=== PATIENT | male | born 1950 | race Two or more races ===

== ENCOUNTER 2023-06-06 14:59 | Emergency (ER) | payer OTHER ==
[~2023-06-06] VITALS: Ht 175.3 cm; Wt 86.5 kg
[2023-06-06 16:18] LABS: Basophils # (auto) 0 10 ^3/uL (0-0.2); Basophils % (auto) 0.4 % (0.0-2.0); Eosinophils # (auto) 0.1 10 ^3/uL (0-0.8); Eosinophils % (auto) 1.1 % (0.0-7.0); Hematocrit 41.9 % (41.0-53.0); Hemoglobin 14.3 g/dL (13.5-17.5); Lymphocytes # (auto) 1.5 10 ^3/uL (0.4-5.4); Lymphocytes % (auto) 26.8 % (10.0-50.0); Mean Corpuscular Hemoglobin 31.6 pg (28.0-32.0); Mean Corpuscular Hgb Conc. 34.2 g/dL (32.0-36.0); Mean Corpuscular Volume 92.4 fL (80.0-100.0); Monocytes # (auto) 0.4 10 ^3/uL (0-1.3); Monocytes % (auto) 7.7 % (0.0-12.0); Neutrophils # (auto) 3.6 10 ^3/uL (1.6-8.6); Nucleated Red Blood Cells % 0.1 %; Red Blood Cells 4.54 10^6/uL (4.5-5.90); Red Cell Distribution Width 13.9 % (11.8-14.3); White Blood Cell 5.6 10^3/uL (4.4-10.8)
[2023-06-06 16:33] LABS: Alanine Aminotransferase 16 U/L (7-40); Albumin 4.3 g/dL (3.2-4.8); Alkaline Phosphatase 78 U/L (46-116); Anion Gap 5 (5-15); Aspartate Aminotransferase 25 U/L (13-40); BUN/Creatinine Ratio 7.4 (10.0-20.0); Blood Urea Nitrogen 7 mg/dL (9-23); Calcium 10.2 mg/dL (8.7-10.4); Carbon Dioxide 27 mmol/L (20-30); Chloride 106 mmol/L (98-107); Glucose 132 mg/dL (74-106); Potassium 3.9 mmol/L (3.5-5.1); Sodium 138 mmol/L (136-145)
[2023-06-06 16:34] LABS: Bilirubin, Total 0.4 mg/dL (0.2-1.0); Total Protein 6.5 g/dL (5.7-8.2)
[2023-06-06 18:08] VITALS: PULSE 106; RESP 18; TEMP 97.5; O2SAT 97
[2023-06-06 19:17] VITALS: BP 129/86
[2023-06-06 20:41] LABS: Urine Bacteria NONE SEEN /hpf (None Seen); Urine Blood Negative /uL (Negative); Urine Clarity Clear (Clear); Urine Color Yellow (Yellow); Urine Mucus FEW (None Seen); Urine Protein, UAD TRACE (Negative); Urine Specific Gravity 1.024 (1.001-1.035); Urine Urobilinogen Normal (Negative); Urine WBC <1 /hpf (0 - 3); Urine pH 5.5 (5.0-8.0)
== END 2023-06-06 21:21 | disposition home or self-care (01) ==
LOC: ER 14:59
DX: I95.9 Hypotension, unspecified (principal); I10 Essential (primary) hypertension; Z98.890 Other specified postprocedural states
CPT/HCPCS: 36415; 70450; 71045; 80053; 81001; 83605; 83735; 83880; 84484; 85025

== ENCOUNTER 2023-09-30 17:57 | Inpatient (IN) | payer OTHER ==
[~2023-09-30] VITALS: Ht 180.3 cm; Wt 131.8 kg
[2023-09-30 18:31] LABS: Basophils # (auto) 0 10 ^3/uL (0-0.2); Basophils % (auto) 0.6 % (0.0-2.0); Eosinophils # (auto) 0.2 10 ^3/uL (0-0.8); Eosinophils % (auto) 4.1 % (0.0-7.0); Hematocrit 39.4 % (41.0-53.0); Hemoglobin 13.5 g/dL (13.5-17.5); Lymphocytes # (auto) 1.2 10 ^3/uL (0.4-5.4); Lymphocytes % (auto) 25.3 % (10.0-50.0); Mean Corpuscular Hemoglobin 31.9 pg (28.0-32.0); Mean Corpuscular Hgb Conc. 34.4 g/dL (32.0-36.0); Mean Corpuscular Volume 92.7 fL (80.0-100.0); Monocytes # (auto) 0.6 10 ^3/uL (0-1.3); Monocytes % (auto) 11.6 % (0.0-12.0); Neutrophils # (auto) 2.8 10 ^3/uL (1.6-8.6); Neutrophils % (auto) 58.4 % (37.0-80.0); Nucleated Red Blood Cells % 0.1 %; Red Blood Cells 4.25 10^6/uL (4.5-5.90); Red Cell Distribution Width 14.2 % (11.8-14.3); White Blood Cell 4.7 10^3/uL (4.4-10.8)
[2023-09-30 18:47] LABS: Alanine Aminotransferase 16 U/L (7-40); Albumin 4.2 g/dL (3.2-4.8); Alkaline Phosphatase 75 U/L (46-116); Anion Gap 7 (5-15); Aspartate Aminotransferase 20 U/L (13-40); BUN/Creatinine Ratio 15.6 (10.0-20.0); Blood Urea Nitrogen 17 mg/dL (9-23); Calcium 9.8 mg/dL (8.5-10.1); Carbon Dioxide 23 mmol/L (20-30); Chloride 109 mmol/L (98-107); Glucose 144 mg/dL (74-106); Potassium 3.9 mmol/L (3.5-5.1); Sodium 139 mmol/L (136-145)
[2023-09-30 18:48] LABS: Bilirubin, Total 0.3 mg/dL (0.2-1.0); Total Protein 6.4 g/dL (5.7-8.2)
[2023-09-30 19:14] LABS: INR 0.95 (0.9-1.15); Partial Thromboplastin Time 25.1 SEC (24.5-34.5); Prothrombin Time 10.1 sec (9.3-11.8)
[2023-09-30] MEDS: ASPirin 325 MG TAB PO ONE (19:25)
[2023-09-30] MEDS ORDERED: MORPHINE SULFATE INJ 2 MG/ml SYRG IV PRN ×2 (23:00)
[2023-09-30] MEDS ORDERED: ONDANSETRON HCL 4 MG/2 ML VIAL IV PRN (23:00)
[2023-09-30] MEDS ORDERED: NITROGLYCERIN 0.4 MG SL TAB SL PRN (23:00)
[2023-10-01 09:44] VITALS: PULSE 71; RESP 71; O2SAT 96
[2023-10-01 09:57] LABS: Urine Bacteria None Seen /hpf (None Seen)
[2023-10-01 10:21] LABS: Amphetamine Screen, Urine Neg (NEGATIVE); Barbiturate Scree,Urine Neg (NEGATIVE); Benzodiazephine Screen, Urine Neg (NEGATIVE); Cannabinoid Screen, Urine Neg (NEGATIVE); Cocaine Screen, Urine Neg (NEGATIVE); Opiate Scree,Urine Neg (NEGATIVE); Phencyclidine Screen, Urine Neg (NEGATIVE)
[2023-10-01 10:22] LABS: Urine Blood Negative /uL (Negative); Urine Clarity Clear (Clear); Urine Color Yellow (Yellow); Urine Mucus FEW (None Seen); Urine Protein, UAD TRACE (Negative); Urine Specific Gravity 1.031 (1.001-1.035); Urine Urobilinogen Normal (Negative); Urine WBC 3 /hpf (0 - 3); Urine pH 5.5 (5.0-9.0)
[2023-10-01] MEDS: ASPirin 81 mg TAB PO SCH (10:33)
[2023-10-01] MEDS ORDERED: MET25T PO (13:32)
[2023-10-01] MEDS ORDERED: TAMS0.4C36 PO (13:32)
[2023-10-01] MEDS ORDERED: AMLO1TAB22 PO (13:32)
[2023-10-01] MEDS ORDERED: FIN5T PO (13:32)
[2023-10-01] MEDS ORDERED: GAB100C PO (13:32)
[2023-10-01] MEDS: GABAPENTIN 100 MG CAP PO SCH (14:54)
[2023-10-01 20:00] VITALS: PULSE 65
[2023-10-01 21:00] VITALS: BP 114/73; PULSE 63; RESP 18; TEMP 98.6; O2SAT 98
[2023-10-02 01:00] VITALS: BP 137/88; PULSE 89; RESP 18; TEMP 98.6; O2SAT 97
[2023-10-02 05:00] VITALS: BP 123/81; PULSE 72; RESP 18; TEMP 98.4; O2SAT 96
[2023-10-02 08:00] VITALS: BP 131/86; PULSE 62; PULSE 63; RESP 18; TEMP 98.2; O2SAT 93
[2023-10-02] MEDS: METOPROLOL TARTRATE 25 MG TAB PO SCH (09:37)
[2023-10-02] MEDS: amLODIPine BESYLATE 5 MG TAB PO SCH (09:38)
[2023-10-02] MEDS: FINASTERIDE 5 MG TAB PO SCH (09:39)
[2023-10-02] MEDS: FAMOTIDINE 20 MG TAB PO SCH (09:39)
[2023-10-02] MEDS: TAMSULOSIN HYDROCHLORIDE 0.4 MG CAP PO SCH (09:39)
[2023-10-02 12:00] VITALS: BP 141/77; PULSE 62; RESP 16; TEMP 97.8; O2SAT 97
[2023-10-02] MEDS ORDERED: OMEP20TA PO (13:15)
[2023-10-02] MEDS ORDERED: GABA250S7 PO (13:25)
[2023-10-02] MEDS ORDERED: TAMS1CAP25 PO (13:25)
[2023-10-02 16:00] VITALS: BP 143/77; PULSE 57; RESP 16; TEMP 98; O2SAT 96
[2023-10-02] MEDS ORDERED: ASPI-325 PO (17:14)
== END 2023-10-02 19:10 | disposition home or self-care (01) | DRG 311 ==
LOC: ER 17:57 → TELE 23:05 → TELE-CENTR 10-01 16:42
PROVIDERS: ADMIT Internal Medicine; ATTEND Internal Medicine
DX: I20.0 Unstable angina (principal); E11.40 Type 2 diabetes mellitus with diabetic neuropathy, unspecified; I10 Essential (primary) hypertension; N40.0 Benign prostatic hyperplasia without lower urinary tract symptoms; I45.10 Unspecified right bundle-branch block; Z90.49 Acquired absence of other specified parts of digestive tract; Z79.899 Other long term (current) drug therapy
CPT/HCPCS: 36415; 70450; 70551; 71045; 80053; 80307; 81001; 84484; 85025; 85610; 85730; 93005; 93306; G0378

== ENCOUNTER 2023-10-16 07:55 | Inpatient (IN) | payer OTHER ==
[~2023-10-16] VITALS: Ht 175.3 cm; Wt 85.4 kg
[~2023-10-16 07:55] MED LIST: AMLO1TAB22 PO; ASPI-325 PO; FIN5T PO; GAB100C PO; GABA250S7 PO; MET25T PO; OMEP20TA PO; TAMS0.4C36 PO; TAMS1CAP25 PO
[2023-10-16 08:33] LABS: Basophils # (auto) 0 10 ^3/uL (0-0.2); Basophils % (auto) 0.6 % (0.0-2.0); Eosinophils # (auto) 0 10 ^3/uL (0-0.8); Eosinophils % (auto) 1.4 % (0.0-7.0); Hematocrit 41.3 % (41.0-53.0); Hemoglobin 14.1 g/dL (13.5-17.5); Lymphocytes # (auto) 0.9 10 ^3/uL (0.4-5.4); Lymphocytes % (auto) 28.3 % (10.0-50.0); Mean Corpuscular Hgb Conc. 34.1 g/dL (32.0-36.0); Mean Corpuscular Volume 93.6 fL (80.0-100.0); Monocytes # (auto) 0.3 10 ^3/uL (0-1.3); Monocytes % (auto) 8.7 % (0.0-12.0); Red Blood Cells 4.42 10^6/uL (4.5-5.90); Red Cell Distribution Width 14.4 % (11.8-14.3); White Blood Cell 3.3 10^3/uL (4.4-10.8)
[2023-10-16 08:42] LABS: Chloride 109 mmol/L (98-107); Potassium 4.3 mmol/L (3.5-5.1); Sodium 140 mmol/L (136-145)
[2023-10-16 08:43] LABS: Anion Gap 9 (5-15); Calcium 10.3 mg/dL (8.7-10.4); Carbon Dioxide 22 mmol/L (20-30)
[2023-10-16 08:48] LABS: BUN/Creatinine Ratio 12.5 (10.0-20.0); Blood Urea Nitrogen 13 mg/dL (9-23); Glucose 145 mg/dL (74-106)
[2023-10-16] MEDS ORDERED: ACETAMINOPHEN 325 MG TAB PO PRN (11:00)
[2023-10-16] MEDS ORDERED: NITROGLYCERIN 0.4 MG SL TAB SL PRN (11:00)
[2023-10-16] MEDS ORDERED: MORPHINE SULFATE INJ 2 MG/ml SYRG IV PRN ×2 (11:00)
[2023-10-16] MEDS ORDERED: DOCUSATE SOD 100 MG CAP PO PRN (11:00)
[2023-10-16] MEDS ORDERED: TEMAZEPAM 15 MG CAP PO PRN (11:00)
[2023-10-16 11:44] LABS: Triglycerides 125 mg/dL (< 150)
[2023-10-16 11:45] LABS: LDL Cholesterol 87 mg/dL (< 100)
[2023-10-16 11:46] LABS: Cholesterol 145 mg/dL (< 200); HDL Cholesterol 50 mg/dL (40-59)
[2023-10-16] MEDS ORDERED: GABAPENTIN 100 MG PO SCH (14:00)
[2023-10-16] MEDS: GABAPENTIN 100 MG CAP PO SCH (16:26)
[2023-10-16] MEDS: HYDROcodone-ACET 5/325MG TAB PO PRN (16:26)
[2023-10-16] MEDS: ACCU-CHEK COMFORT CURVE STRIP VI ONE (20:17)
[2023-10-16] MEDS: DEXTROSE (50%) 50ML SYRG IV ONE (20:18)
[2023-10-16] MEDS: InsuLIN REG 1unit/0.01ml Soln (100units/ml) SC ONE (20:24)
[2023-10-16] MEDS: ONDANSETRON HCL 4 MG/2 ML VIAL IV PRN (21:42)
[2023-10-17] VITALS (7 sets, daily range): BP systolic 110–139; BP diastolic 63–82; PULSE 51–74; RESP 14–18; TEMP 97.8–98.7; O2SAT 95–97
[2023-10-17 06:14] LABS: Basophils # (auto) 0 10 ^3/uL (0-0.2); Basophils % (auto) 0.5 % (0.0-2.0); Eosinophils # (auto) 0.1 10 ^3/uL (0-0.8); Eosinophils % (auto) 3.1 % (0.0-7.0); Hemoglobin 12.6 g/dL (13.5-17.5); Lymphocytes % (auto) 25.8 % (10.0-50.0); Mean Corpuscular Hemoglobin 32.7 pg (28.0-32.0); Mean Corpuscular Hgb Conc. 34.9 g/dL (32.0-36.0); Mean Corpuscular Volume 93.7 fL (80.0-100.0); Monocytes # (auto) 0.4 10 ^3/uL (0-1.3); Monocytes % (auto) 11.2 % (0.0-12.0); Neutrophils # (auto) 2.3 10 ^3/uL (1.6-8.6); Neutrophils % (auto) 59.4 % (37.0-80.0); Red Blood Cells 3.84 10^6/uL (4.5-5.90); Red Cell Distribution Width 14.2 % (11.8-14.3); White Blood Cell 3.9 10^3/uL (4.4-10.8)
[2023-10-17 06:38] LABS: Alanine Aminotransferase 15 U/L (7-40); Albumin 3.9 g/dL (3.2-4.8); Alkaline Phosphatase 52 U/L (46-116); Anion Gap 6 (5-15); Aspartate Aminotransferase 15 U/L (13-40); BUN/Creatinine Ratio 16.8 (10.0-20.0); Bilirubin, Total 0.5 mg/dL (0.2-1.0); Blood Urea Nitrogen 16 mg/dL (9-23); Calcium 9.7 mg/dL (8.7-10.4); Carbon Dioxide 26 mmol/L (20-30); Chloride 107 mmol/L (98-107); Glucose 84 mg/dL (74-106); Potassium 3.9 mmol/L (3.5-5.1); Sodium 139 mmol/L (136-145); Total Protein 5.8 g/dL (5.7-8.2)
[2023-10-17] MEDS: TAMSULOSIN HYDROCHLORIDE 0.4 MG CAP PO SCH (11:10)
[2023-10-17] MEDS: PANTOPRAZOLE 40 MG TAB PO SCH (11:11)
[2023-10-17] MEDS: METOPROLOL TARTRATE 25 MG TAB PO SCH (11:11)
[2023-10-17] MEDS: FINASTERIDE 5 MG TAB PO SCH (11:12)
[2023-10-17] MEDS: amLODIPine BESYLATE 5 MG TAB PO SCH (11:12)
[2023-10-17] MEDS: ENOXAPARIN SOD 40 MG/0.4 ML SYRINGE SC SCH (11:13)
[2023-10-17] MEDS ORDERED: OMNIPAQUE 12mg/ml 500ml ORAL SOLUTION PO ONE (14:15)
[2023-10-17 14:28] LABS: Urine Bacteria None Seen /hpf (None Seen)
[2023-10-17 14:40] LABS: Urine Blood Negative /uL (Negative); Urine Clarity Clear (Clear); Urine Color Light-Yellow (Yellow); Urine Protein, UAD Negative (Negative); Urine Specific Gravity 1.011 (1.001-1.035); Urine Urobilinogen Normal (Negative); Urine WBC <1 /hpf (0 - 3); Urine pH 7.5 (5.0-9.0)
[2023-10-17] MEDS ORDERED: OMEP-448 PO (17:09)
[2023-10-17] MEDS ORDERED: IBUP-1456 PO (17:09)
[2023-10-17] MEDS ORDERED: TRIA0.02 TOP (17:09)
[2023-10-18] VITALS (8 sets, daily range): BP systolic 96–139; BP diastolic 58–73; PULSE 53–67; RESP 14–18; TEMP 97.7–98.8; O2SAT 94–98
[2023-10-19] VITALS (9 sets, daily range): BP systolic 103–126; BP diastolic 64–73; PULSE 47–65; RESP 17–20; TEMP 97.7–98.6; O2SAT 93–97
[2023-10-19] MEDS ORDERED: SODIUM CHLORIDE LOCK 10 ML ONE (14:44)
[2023-10-19] MEDS: LIDOCAINE VISCOUS 2% 15ML UD ONE (15:04)
[2023-10-19] MEDS: diphenhdrAMINE HCL 50 MG/1 ML VL ONE (15:11)
[2023-10-19] MEDS: MIDAZOLAM HCL 5 MG/ML-1ML VIAL ONE (15:11)
[2023-10-19] MEDS: fentaNYL CITRATE 100 MCG/2 ML VL ONE (15:11)
[2023-10-20 01:00] VITALS: BP 105/67; PULSE 80; RESP 20; TEMP 97.7; O2SAT 95
[2023-10-20 05:00] VITALS: BP 109/72; PULSE 70; RESP 18; TEMP 97.7; O2SAT 96
[2023-10-20 08:00] VITALS: BP 119/76; PULSE 60; PULSE 80; PULSE 82; RESP 18; TEMP 97.8; O2SAT 94
[2023-10-20 12:00] VITALS: BP 111/66; PULSE 67; RESP 18; TEMP 98.4; O2SAT 99
[2023-10-20] MEDS ORDERED: PANT40T PO (14:16)
[2023-10-20 15:34] VITALS: BP 111/66; PULSE 67; RESP 18; TEMP 98.4; O2SAT 99
== END 2023-10-20 16:20 | disposition home or self-care (01) | DRG 382 ==
LOC: ER 07:55 → TELE 11:01 → TELE-EAST 10-17 09:15
PROVIDERS: ADMIT Nurse Practitioner; ATTEND Nurse Practitioner
PROC: 0DB68ZX Excision of Stomach, Via Natural or Artificial Opening Endoscopic, Diagnostic (ICD-10-PCS; 2023-10-19)
PROC: 0DB98ZX Excision of Duodenum, Via Natural or Artificial Opening Endoscopic, Diagnostic (ICD-10-PCS; principal; 2023-10-19 15:04)
DX: K22.10 Ulcer of esophagus without bleeding (principal); I25.10 Atherosclerotic heart disease of native coronary artery without angina pectoris; E11.65 Type 2 diabetes mellitus with hyperglycemia; I44.4 Left anterior fascicular block; J98.4 Other disorders of lung; K44.9 Diaphragmatic hernia without obstruction or gangrene; K40.20 Bilateral inguinal hernia, without obstruction or gangrene, not specified as recurrent; K57.30 Diverticulosis of large intestine without perforation or abscess without bleeding; K83.8 Other specified diseases of biliary tract; I10 Essential (primary) hypertension; F41.9 Anxiety disorder, unspecified; Z90.49 Acquired absence of other specified parts of digestive tract; Z79.82 Long term (current) use of aspirin; Z79.899 Other long term (current) drug therapy
CPT/HCPCS: 36415; 43239; 71045; 74176; 80048; 80053; 80061; 81001; 83880; 84484; 85025; 93005; G0378; J1815; J2250; J2405

== ENCOUNTER 2023-10-26 08:56 | Emergency (ER) | payer OTHER ==
[~2023-10-26] VITALS: Ht 175.3 cm; Wt 83.0 kg
[~2023-10-26 08:56] MED LIST changes: -GABA250S7 PO; +IBUP-1456 PO; -OMEP20TA PO; +PANT40T PO; -TAMS1CAP25 PO; +TRIA0.02 TOP
[2023-10-26 09:42] LABS: Basophils # (auto) 0 10 ^3/uL (0-0.2); Basophils % (auto) 0.7 % (0.0-2.0); Eosinophils # (auto) 0.1 10 ^3/uL (0-0.8); Eosinophils % (auto) 2.9 % (0.0-7.0); Hematocrit 40.8 % (41.0-53.0); Hemoglobin 14.2 g/dL (13.5-17.5); Lymphocytes # (auto) 1.2 10 ^3/uL (0.4-5.4); Lymphocytes % (auto) 31.6 % (10.0-50.0); Mean Corpuscular Hemoglobin 32.6 pg (28.0-32.0); Mean Corpuscular Hgb Conc. 34.7 g/dL (32.0-36.0); Mean Corpuscular Volume 93.9 fL (80.0-100.0); Monocytes # (auto) 0.4 10 ^3/uL (0-1.3); Monocytes % (auto) 9.9 % (0.0-12.0); Neutrophils # (auto) 2.1 10 ^3/uL (1.6-8.6); Neutrophils % (auto) 54.9 % (37.0-80.0); Red Blood Cells 4.34 10^6/uL (4.5-5.90); Red Cell Distribution Width 14.2 % (11.8-14.3); White Blood Cell 3.9 10^3/uL (4.4-10.8)
[2023-10-26 10:06] LABS: Alanine Aminotransferase 18 U/L (7-40); Albumin 4.1 g/dL (3.2-4.8); Alkaline Phosphatase 64 U/L (46-116); Anion Gap 8 (5-15); Aspartate Aminotransferase 18 U/L (13-40); BUN/Creatinine Ratio 7.3 (10.0-20.0); Bilirubin, Total 0.6 mg/dL (0.2-1.0); Blood Urea Nitrogen 8 mg/dL (9-23); Calcium 10.2 mg/dL (8.7-10.4); Carbon Dioxide 23 mmol/L (20-30); Chloride 108 mmol/L (98-107); Glucose 120 mg/dL (74-106); Potassium 3.9 mmol/L (3.5-5.1); Sodium 139 mmol/L (136-145); Total Protein 6.4 g/dL (5.7-8.2)
[2023-10-26 11:10] VITALS: PULSE 63; RESP 16; O2SAT 97
[2023-10-26 11:22] VITALS: TEMP 98.1
[2023-10-26] MEDS: MORPHINE SULFATE INJ 2 MG/ml SYRG IM ONE (11:40)
[2023-10-26] MEDS: ONDANSETRON HCL 4 MG/2 ML VIAL IV ONE (11:48)
[2023-10-26] MEDS: IOHEXOL 300 MG/ML 100ML BOTTLE IJ ONE (13:03)
[2023-10-26 13:06] VITALS: BP 125/77; PULSE 58; RESP 16; O2SAT 98
[2023-10-26 13:32] LABS: Urine Bacteria None Seen /hpf (None Seen)
[2023-10-26 13:47] LABS: Urine Blood Negative /uL (Negative); Urine Clarity Clear (Clear); Urine Color Yellow (Yellow); Urine Mucus FEW (None Seen); Urine Protein, UAD TRACE (Negative); Urine Urobilinogen Normal (Negative); Urine WBC <1 /hpf (0 - 3); Urine pH 6.5 (5.0-9.0)
[2023-10-26 13:53] LABS: Urine Specific Gravity > 1.050 (1.001-1.035)
[2023-10-26] MEDS ORDERED: BISM262C44 PO (14:49)
[2023-10-26] MEDS ORDERED: [UNRECOGNIZED DRUG - CODE] PO (14:49)
== END 2023-10-26 15:05 | disposition home or self-care (01) ==
LOC: ER 09:01
DX: R07.89 Other chest pain (principal); K52.9 Noninfective gastroenteritis and colitis, unspecified; E11.65 Type 2 diabetes mellitus with hyperglycemia; I10 Essential (primary) hypertension; Z90.49 Acquired absence of other specified parts of digestive tract; Z79.899 Other long term (current) drug therapy; Z79.82 Long term (current) use of aspirin
CPT/HCPCS: 36415; 71046; 74177; 80053; 81001; 84484; 85025; 93005; 96372; 96374; 99285; J2270; J2405; Q9967

== ENCOUNTER 2024-03-07 21:11 | Emergency (ER) | payer OTHER ==
[~2024-03-07] VITALS: Ht 175.3 cm; Wt 81.3 kg
[~2024-03-07 21:11] MED LIST changes: +BISM262C44 PO; -TAMS0.4C36 PO; +TAMS0.4C39 PO; +[UNRECOGNIZED DRUG - CODE] PO
[2024-03-07 22:07] LABS: COVID19 ANTIGEN SOFIA FIA NEGATIVE (NEGATIVE); Rapid Influenza A Negative (Negative); Rapid Influenza B Negative (Negative)
[2024-03-07 22:08] LABS: Basophils # (auto) 0 10 ^3/uL (0-0.2); Basophils % (auto) 0.6 % (0.0-2.0); Eosinophils # (auto) 0.1 10 ^3/uL (0-0.8); Eosinophils % (auto) 2.3 % (0.0-7.0); Hematocrit 40.8 % (41.0-53.0); Hemoglobin 13.8 g/dL (13.5-17.5); Lymphocytes # (auto) 1.2 10 ^3/uL (0.4-5.4); Lymphocytes % (auto) 26.1 % (10.0-50.0); Mean Corpuscular Hgb Conc. 33.9 g/dL (32.0-36.0); Mean Corpuscular Volume 94.3 fL (80.0-100.0); Monocytes # (auto) 0.5 10 ^3/uL (0-1.3); Monocytes % (auto) 10.4 % (0.0-12.0); Neutrophils # (auto) 2.9 10 ^3/uL (1.6-8.6); Neutrophils % (auto) 60.6 % (37.0-80.0); Nucleated Red Blood Cells % 0.1 %; Platelet Count (auto) 185 10^3/uL (140-450); Red Blood Cells 4.33 10^6/uL (4.5-5.90); White Blood Cell 4.7 10^3/uL (4.4-10.8)
[2024-03-07 22:14] LABS: Alanine Aminotransferase 15 U/L (7-40); Albumin 4.2 g/dL (3.2-4.8); Alkaline Phosphatase 90 U/L (46-116); Anion Gap 6 (5-15); Aspartate Aminotransferase 17 U/L (13-40); Bilirubin, Total 0.3 mg/dL (0.2-1.0); Blood Urea Nitrogen 16 mg/dL (9-23); Calcium 10.4 mg/dL (8.7-10.4); Carbon Dioxide 29 mmol/L (20-31); Chloride 104 mmol/L (98-107); Potassium 4.2 mmol/L (3.5-5.1); Sodium 139 mmol/L (136-145); Total Protein 6.6 g/dL (5.7-8.2)
[2024-03-07 22:17] LABS: Glucose 146 mg/dL (74-106)
--- NOTE | 2024-03-08 00:36 | ED.PDOC ---
History of Present Illness HPI Comments This patient is a 73-year-old male who arrives to the ED today with complaints of dizziness, headache, intermittent nausea and hypertensive concerns for the past day. Patient states he has a history of hypertension but does not utilize medication. Patient denies any fever. Patient's BP was 153/94 at arrival. Chief Complaint: Headache Time Seen by MD: 21:19 Primary Care Provider: LATRICIA Reviewed Notes: Nurses Notes Allergies: Coded Allergies: NO KNOWN ALLERGIES (Unverified , 06/06/23) Home Meds Active Scripts Bismuth Subsalicylate (PEPTO-BISMOL TO-GO) 262 Mg Chw, 262 MG PO BID for 10 Days, #20 TAB.CHEW Prov:ZAHRA GONZALES MD 10/26/23 Probiotic Product (Probiotic 10 Ultra Streng) 1 Cap Cap, 1 CAP PO B.i.d. for 15 Days, #30 CAP Prov:ZAHRA GONZALES MD 10/26/23 Pantoprazole Sodium Sesquihydr (Pantoprazole Sodium) 40 Mg Tab, 40 MG PO DAILY for 30 Days, #30 TAB Prov:IMELDA ALEXANDER PATIENT REGISTRATION SPECIALIST 10/20/23 Aspirin (Aspirin Low Dose) 81 Mg Tab, 81 MG PO DAILY for 30 Days, #30 TAB Prov:MIGUEL GORDILLO NP 10/02/23 Reported Medications Triamcinolone Acetonide (Triamcinolone Acetonide) 0.025 % Cre, 4 GRAMS TOP BID Apply 4 grams topically to the affected area twice daily. 10/17/23 Ibuprofen (Ibuprofen) 800 Mg Tab, 1 TAB PO Q8HR PRN 10/17/23 Gabapentin (Gabapentin) 100 Mg Cap, 1 CAP PO TID 10/01/23 Finasteride (Finasteride) 5 Mg Tab, 1 TAB PO DAILY 10/01/23 Tamsulosin Hcl (Tamsulosin Hcl) 0.4 Mg Cap, 2 CAP PO DAILY 10/01/23 Metoprolol Tartrate (Lopressor) 25 Mg Tb, 1 TAB PO DAILY 10/01/23 Amlodipine Besylate (Amlodipine Besylate) 5 Mg Tab, 1 TAB PO DAILY 10/01/23 Information Source: Patient Mode of Arrival: Ambulatory Severity: Moderate Timing: Hours Duration: Since onset Prehospital treatment: None Past Medical History PAST MEDICAL HISTORY: DM, HTN Surgical History: Cholecystectomy, Hernia Repair Family History Family History: Reviewed,noncontributory to illness Social History Smoker: Non-Smoker Alcohol: Denies ETOH Use Drugs: Denies Drug Use Lives In: Home Constitutional: denies: chills, diaphoresis, fatigue, fever, malaise, sweats, weakness, others EENTM: denies: blurred vision, double vision, ear bleeding, ear discharge, ear drainage, ear pain, ear ringing, eye pain, eye redness, hearing loss, mouth pain, mouth swelling, nasal discharge, nose bleeding, nose congestion, nose pain, photophobia, tearing, throat pain, throat swelling, voice changes, others Respiratory: denies: cough, hemoptysis, orthopnea, SOB at rest, shortness of breath, SOB with excertion, stridor, wheezing, others Cardiovascular: denies: chest pain, dizzy spells, diaphoresis, Dyspnea on exertion, edema, irregular heart beat, left arm pain, lightheadedness, palpitations, PND, syncope, others Gastrointestinal: reports: nausea; denies: abdomen distended, abdominal pain, blood streaked bowels, constipated, diarrhea, dysphagia, difficulty swallowing, hematemesis, melena, poor appetite, poor fluid intake, rectal bleeding, rectal pain, vomiting, others Genitourinary: denies: burning, dysuria, flank pain, frequency, hematuria, incontinence, penile discharge, penile sore, pain, testicle pain, testicle swelling, urgency, others Neurological: reports: dizziness, headache; denies: fainting, left sided numbness, left sided weakness, numbness, paresthesia, pre-existing deficit, right sided numbness, right sided weakness, seizure, speech problems, tingling, tremors, weakness, others Musculoskeletal: denies: back pain, gout, joint pain, joint swelling, muscle pain, muscle stiffness, neck pain, others Integumetry: denies: bruises, change in color, change in hair/nails, dryness, laceration, lesions, lumps, rash, wounds, others Allergic/Immunocompromised: denies: Difficulty Healing, Frequent Infections, Hives, Itching, others Hematologic/Lymphatic: denies: anemia, blood clots, easy bleeding, easy bruising, swollen glands, others Endocrine: denies: excessive hunger, excessive sweating, excessive thirst, excessive urination, flushing, intolerance to cold, intolerance to heat, unexplained weight gain, unexplained weight loss, others Psychiatric: denies: anxiety, bipolar disorder, depression, hopeless, panic disorder, schizophrenia, sleepless, suicidal, others Physical Exam General Appearance: Mild Distress (Patient was in moderate distress and not particularly nauseous that time of evaluation.), Normal HEENT: Head (Cranial exam was unremarkable. No signs of trauma. No skull depressions or deformities.), Normal ENT Inspection, Pharynx Normal, TMs Normal Neck: Full Range of Motion, Non-Tender, Normal, Normal Inspection Respiratory: Chest Non-Tender, Lungs Clear, No Accessory Muscle Use, No Respiratory Distress, Normal Breath Sounds Cardiovascular: No Edema, No JVD, No Murmur, No Gallop, Normal Peripheral Pulses, Regular Rate/Rhythm Breast Exam: Deferred Gastrointestinal: No Organomegaly, Non Tender, No Pulsatile Mass, Normal Bowel Sounds, Soft Genitalia: Deferred Pelvic: Deferred Rectal: Deferred Extremities: No calf tenderness, Normal capillary refill, Normal inspection, Normal range of motion, Non-tender, No pedal edema Neurologic: Alert, riveter hand II-XII nml as Tested, No Motor Deficits, Normal Affect, Normal Mood, No Sensory Deficits Cerebellar Function: Normal Reflexes: Normal Skin: Dry, Normal Color, Warm Lymphatic: No Adenopathy Was a procedure done? Was a procedure done?: No Differential Dx Considerations may include: Acute cardiac event, acute coronary syndrome, [place], hypertension, sepsis, electrolyte abnormality, UTI X-Ray, Labs, Meds, VS Vital Signs Date Time Temp Pulse Resp B/P (MAP) Pulse Ox O2 Delivery O2 Flow Rate FiO2 03/08/24 02:42 55 16 149/93 (111) 98 03/08/24 02:42 55 16 98 Room Air* 0 21 03/08/24 02:18 149/93 03/07/24 21:20 98.4 74 18 153/94 (113) 97 Lab Test 03/07/24 21:35 03/07/24 21:32 03/07/24 21:24 Range/Units White Blood Count 4.7 4.4-10.8 10^3/uL Red Blood Count 4.33 L 4.5-5.90 10^6/uL Hemoglobin 13.8 13.5-17.5 g/dL Hematocrit 40.8 L 41.0-53.0 % Mean Corpuscular Volume 94.3 80.0-100.0 fL Mean Corpuscular Hemoglobin 32.0 28.0-32.0 pg Mean Corpuscular Hemoglobin Concent 33.9 32.0-36.0 g/dL Red Cell Distribution Width 14.0 11.8-14.3 % Platelet Count 185 140-450 10^3/uL Mean Platelet Volume 8.2 6.9-10.8 fL Neutrophils (%) (Auto) 60.6 37.0-80.0 % Lymphocytes (%) (Auto) 26.1 10.0-50.0 % Monocytes (%) (Auto) 10.4 0.0-12.0 % Eosinophils (%) (Auto) 2.3 0.0-7.0 % Basophils (%) (Auto) 0.6 0.0-2.0 % Neutrophils # (Auto) 2.9 1.6-8.6 10 ^3/uL Lymphocytes # (Auto) 1.2 0.4-5.4 10 ^3/uL Monocytes # (Auto) 0.5 0-1.3 10 ^3/uL Eosinophils # (Auto) 0.1 0-0.8 10 ^3/uL Basophils # (Auto) 0 0-0.2 10 ^3/uL Nucleated Red Blood Cells 0.1 % Sodium Level 139 136-145 mmol/L Potassium Level 4.2 3.5-5.1 mmol/L Chloride Level 104 98-107 mmol/L Carbon Dioxide Level 29 20-31 mmol/L Anion Gap 6 5-15 Blood Urea Nitrogen 16 9-23 mg/dL Creatinine 0.94 0.700-1.30 mg/dL Glomerular Filtration Rate Calc 85 >90 mL/min BUN/Creatinine Ratio 17.0 10.0-20.0 Serum Glucose 146 H 74-106 mg/dL Calcium Level 10.4 8.7-10.4 mg/dL Total Bilirubin 0.3 0.2-1.0 mg/dL Aspartate Amino Transferase (AST) 17 13-40 U/L Alanine Aminotransferase (ALT) 15 7-40 U/L Alkaline Phosphatase 90 46-116 U/L Total Protein 6.6 5.7-8.2 g/dL Albumin 4.2 3.2-4.8 g/dL Influenza Type A Antigen Negative Negative Influenza Type B Antigen Negative Negative SARS-CoV-2 Antigen (Rapid) Negative NEGATIVE POC Glucose 141 H 70-106 mg/dl Current Medications Medications (Trade) Dose Ordered Sig/[place] Route Start Time Stop Time Status Last Admin Ondansetron HCl (Zofran Po) 4 mg ONCE ONCE PO 03/07/24 21:30 03/07/24 21:31 DC 03/08/24 02:23 X-Ray, Labs, Meds, VS Comment Patient refused medication as well as troponin studies. Patient will be discharged for hypertensive concerns and advised to follow up with his primary care provider. Time of 1ST Reevaluation: 00:35 Reevaluation 1ST: Unchanged Consultation: PCP, Cardiology Patient Education/Counseling: Diagnosis, Treatment Family Education/Counseling: Diagnosis, Treatment Departure 1 Departure Time of Disposition: 00:35 Impression: Primary Impression: Chest pain Additional Impression: Hypertension Disposition: 01 HOME / SELF CARE / HOMELESS Condition: Stable Additional Instructions: Advised patient utilize medication as needed for emergent relief. Patient needs to follow up with primary care provider for discussions related to proper medication management of his poorly controlled blood pressure. e-Prescriptions Clonidine Hydrochloride (Clonidine Hcl) 0.2 Mg Tab 1 TAB PO BID, #20 TAB 0 Refills To be used if systolic pressures above 160 or diastolic pressures above 90. Prov: CLARITA BOLIVAR PAC 03/08/24 Discharged With: Self, Friend Critical Care Note Critical Care Time?: No Stability Stability form required: No Heart Score Heart Score: Heart Score Response (Comments) Value History N/A 0 EKG N/A 0 Age N/A 0 Risk Factors N/A 0 Troponin N/A 0 Total 0 CLARITA BOLIVAR PAC Mar 08, 2024 00:35
[2024-03-08] MEDS: cloNIDine HCL 0.1 MG TAB PO ONE (02:18)
[2024-03-08] MEDS: HYDROcodone-ACET 5/325MG TAB PO ONE (02:22)
[2024-03-08] MEDS: ONDANSETRON ODT 4 MG TAB PO ONE (02:23)
[2024-03-08 02:42] VITALS: BP 149/93; PULSE 55; RESP 16; O2SAT 98
[2024-03-08] MEDS ORDERED: CLON0.2T PO (02:51)
[2024-03-08] MEDS: ACETAMINOPHEN 500 MG TAB or CAP PO ONE (03:21)
== END 2024-03-08 03:20 | disposition home or self-care (01) ==
LOC: ER 21:11
DX: I10 Essential (primary) hypertension (principal); R07.9 Chest pain, unspecified; E11.9 Type 2 diabetes mellitus without complications; Z90.49 Acquired absence of other specified parts of digestive tract; Z20.822 Contact with and (suspected) exposure to COVID-19; Z98.890 Other specified postprocedural states; Z79.899 Other long term (current) drug therapy; Z79.82 Long term (current) use of aspirin
CPT/HCPCS: 36415; 80053; 82962; 85025; 87426; 87804; 99283; Q0162

== ENCOUNTER 2024-04-28 10:43 | Inpatient (IN) | payer OTHER ==
[~2024-04-28] VITALS: Ht 172.7 cm; Wt 77.2 kg
[~2024-04-28 10:43] MED LIST changes: +CLON0.2T PO
--- NOTE | 2024-04-28 11:20 | ED.PDOC ---
History of Present Illness HPI Comments 74 y/o M with PMHX of HTN presents to the ED for CC of headache. Patient states, that he has been experiencing a back sided headache with associated symptoms of dizziness and chest pain [id number]. Patient relays, chest pain to be pressure like that is non-radiating. Patient denies social history. Patient denies fever, chills, dizziness, lightheadedness, or N/V/D. Chief Complaint: Headache Time Seen by MD: 11:00 Primary Care Provider: SHLOMO Reviewed Notes: Nurses Notes, Medications, Allergies Allergies: Coded Allergies: NO KNOWN ALLERGIES (Unverified , 06/06/23) Home Meds Active Scripts Clonidine Hydrochloride (Clonidine Hcl) 0.2 Mg Tab, 1 TAB PO BID, #20 TAB 0 Refills To be used if systolic pressures above 160 or diastolic pressures above 90. Prov:CLARITA BOLIVAR PAC 03/08/24 Bismuth Subsalicylate (PEPTO-BISMOL TO-GO) 262 Mg Chw, 262 MG PO BID for 10 Days, #20 TAB.CHEW Prov:ZAHRA GONZALES MD 10/26/23 Probiotic Product (Probiotic 10 Ultra Streng) 1 Cap Cap, 1 CAP PO B.i.d. for 15 Days, #30 CAP Prov:ZAHRA GONZALES MD 10/26/23 Pantoprazole Sodium Sesquihydr (Pantoprazole Sodium) 40 Mg Tab, 40 MG PO DAILY for 30 Days, #30 TAB Prov:IMELDA ALEXANDER STONE LAYOUT MARKER 10/20/23 Aspirin (Aspirin Low Dose) 81 Mg Tab, 81 MG PO DAILY for 30 Days, #30 TAB Prov:MIGUEL GORDILLO FORMULA TECHNICIAN 10/02/23 Reported Medications Triamcinolone Acetonide (Triamcinolone Acetonide) 0.025 % Cre, 4 GRAMS TOP BID Apply 4 grams topically to the affected area twice daily. 10/17/23 Ibuprofen (Ibuprofen) 800 Mg Tab, 1 TAB PO Q8HR PRN 10/17/23 Gabapentin (Gabapentin) 100 Mg Cap, 1 CAP PO TID 10/01/23 Finasteride (Finasteride) 5 Mg Tab, 1 TAB PO DAILY 10/01/23 Tamsulosin Hcl (Tamsulosin Hcl) 0.4 Mg Cap, 2 CAP PO DAILY 10/01/23 Metoprolol Tartrate (Lopressor) 25 Mg Tb, 1 TAB PO DAILY 10/01/23 Amlodipine Besylate (Amlodipine Besylate) 5 Mg Tab, 1 TAB PO DAILY 10/01/23 Information Source: Patient Mode of Arrival: Ambulatory Severity: Moderate Timing: Days Duration: Since onset Prehospital treatment: None Past Medical History PAST MEDICAL HISTORY: DM, HTN Surgical History: Cholecystectomy, Hernia Repair Family History Family History: Reviewed,noncontributory to illness Social History Smoker: Non-Smoker Alcohol: Denies ETOH Use Drugs: Denies Drug Use Lives In: Home Constitutional: denies: chills, diaphoresis, fatigue, fever, malaise, sweats, weakness, others EENTM: denies: blurred vision, double vision, ear bleeding, ear discharge, ear drainage, ear pain, ear ringing, eye pain, eye redness, hearing loss, mouth pain, mouth swelling, nasal discharge, nose bleeding, nose congestion, nose pain, photophobia, tearing, throat pain, throat swelling, voice changes, others Respiratory: denies: cough, hemoptysis, orthopnea, SOB at rest, shortness of breath, SOB with excertion, stridor, wheezing, others Cardiovascular: reports: chest pain; denies: dizzy spells, diaphoresis, Dyspnea on exertion, edema, irregular heart beat, left arm pain, lightheadedness, palpitations, PND, syncope, others Gastrointestinal: denies: abdomen distended, abdominal pain, blood streaked bowels, constipated, diarrhea, dysphagia, difficulty swallowing, hematemesis, melena, nausea, poor appetite, poor fluid intake, rectal bleeding, rectal pain, vomiting, others Genitourinary: denies: burning, dysuria, flank pain, frequency, hematuria, inco ntinence, penile discharge, penile sore, pain, testicle pain, testicle swelling, urgency, others Neurological: reports: dizziness, headache Musculoskeletal: denies: back pain, gout, joint pain, joint swelling, muscle pain, muscle stiffness, neck pain, others Integumetry: denies: bruises, change in color, change in hair/nails, dryness, laceration, lesions, lumps, rash, wounds, others Allergic/Immunocompromised: denies: Difficulty Healing, Frequent Infections, Hives, Itching, others Hematologic/Lymphatic: denies: anemia, blood clots, easy bleeding, easy bruising, swollen glands, others Endocrine: denies: excessive hunger, excessive sweating, excessive thirst, excessive urination, flushing, intolerance to cold, intolerance to heat, unex plained weight gain, unexplained weight loss, others Psychiatric: denies: anxiety, bipolar disorder, depression, hopeless, panic disorder, schizophrenia, sleepless, suicidal, others All Other Systems: Reviewed and Negative Physical Exam General Appearance: Moderate Distress HEENT: Normal ENT Inspection, Pharynx Normal, TMs Normal Neck: Full Range of Motion, Non-Tender, Normal, Normal Inspection Respiratory: Chest Non-Tender, Lungs Clear, No Accessory Muscle Use, No Respiratory Distress, Normal Breath Sounds Cardiovascular: No Edema, No JVD, No Murmur, No Gallop, Normal Peripheral Pulses, Regular Rate/Rhythm Breast Exam: Deferred Gastrointestinal: No Organomegaly, Non Tender, No Pulsatile Mass, Normal Bowel Sounds, Soft Genitalia: Deferred Pelvic: Deferred Rectal: Deferred Extremities: No calf tenderness, Normal capillary refill, Normal inspection, Normal range of motion, Non-tender, No pedal edema Musculoskeletal : Apperance: Normal Neurologic: Alert, marble and granite polisher II-XII nml as Tested, No Motor Deficits, Normal Affect, Normal Mood, No Sensory Deficits Cerebellar Function: Normal Reflexes: Normal Skin: Dry, Normal Color, Warm Peripheral Pulses: 3+ Radial (R), 3+ Radial (L) Lymphatic: No Adenopathy Was a procedure done? Was a procedure done?: No EKG EKG : Pulse Rate (adult): 67 [place]: LAD Block: None Hypertrophy: None ST: Normal Comments sinus or ectopic atrial rhythm Differential Dx Considerations may include: migraine, cluster headache X-Ray, Labs, Meds, VS Vital Signs Date Time Temp Pulse Resp B/P (MAP) Pulse Ox O2 Delivery O2 Flow Rate FiO2 04/28/24 12:14 Room Air* 0 21 04/28/24 12:00 98.4 82 16 100/72 (81) 98 98.4 04/28/24 11:20 67 04/28/24 11:09 67 04/28/24 11:00 99.1 78 20 125/82 (96) 95 Lab Test 04/28/24 12:00 04/28/24 11:12 04/28/24 11:05 04/28/24 11:04 Range/Units Troponin I High Sensitivity 3 L 3 L </=54 ng/L White Blood Count 3.1 L 4.4-10.8 10^3/uL Red Blood Count 4.73 4.5-5.90 10^6/uL Hemoglobin 15.3 13.5-17.5 g/dL Hematocrit 44.8 41.0-53.0 % Mean Corpuscular Volume 94.7 80.0-100.0 fL Mean Corpuscular Hemoglobin 32.3 H 28.0-32.0 pg Mean Corpuscular Hemoglobin Concent 34.1 32.0-36.0 g/dL Red Cell Distribution Width 14.5 H 11.8-14.3 % Platelet Count 184 140-450 10^3/uL Mean Platelet Volume 7.9 6.9-10.8 fL Neutrophils (%) (Auto) 62.1 37.0-80.0 % Lymphocytes (%) (Auto) 26.3 10.0-50.0 % Monocytes (%) (Auto) 9.6 0.0-12.0 % Eosinophils (%) (Auto) 1.5 0.0-7.0 % Basophils (%) (Auto) 0.5 0.0-2.0 % Neutrophils # (Auto) 1.9 1.6-8.6 10 ^3/uL Lymphocytes # (Auto) 0.8 0.4-5.4 10 ^3/uL Monocytes # (Auto) 0.3 0-1.3 10 ^3/uL Eosinophils # (Auto) 0 0-0.8 10 ^3/uL Basophils # (Auto) 0 0-0.2 10 ^3/uL Nucleated Red Blood Cells 0.3 % Sodium Level 136 136-145 mmol/L Potassium Level 4.7 3.5-5.1 mmol/L Chloride Level 103 98-107 mmol/L Carbon Dioxide Level 29 20-31 mmol/L Anion Gap 4 L 5-15 Blood Urea Nitrogen 12 9-23 mg/dL Creatinine 0.99 0.700-1.30 mg/dL Glomerular Filtration Rate Calc 79 >90 mL/min BUN/Creatinine Ratio 12.1 10.0-20.0 Serum Glucose 163 H 74-106 mg/dL Calcium Level 10.7 H 8.7-10.4 mg/dL Urine Color Yellow Yellow Urine Clarity Clear Clear Urine pH 5.5 5.0-9.0 Urine Specific [place] 1.034 1.001-1.035 Urine Protein Trace H Negative Urine Ketones 1+ H Negative Urine Blood Negative Negative /uL Urine Nitrite Negative Negative Urine Bilirubin Negative Negative Urine Urobilinogen 2 H Negative mg/dL Urine Leukocyte Esterase Negative Negative /uL Urine RBC 1 0 - 3 /hpf Urine Microscopic WBC < 1 0-3 /HPF Urine Squamous Epithelial Cells None seen <5 /hpf Urine Bacteria None seen None Seen /hpf Urine Mucus Few None Seen Urine Glucose Normal Normal mg/dL POC Glucose 162 H 70-106 mg/dl [facility] [id number] [address] [id number] Ph: [phone] DIAGNOSTIC IMAGING Diagnostic Imaging Report : [id number] Signed PATIENT: Stephanie NDIAYE ACCT: [id number] UNIT: [id number] : 1950 LOC: ER ROOM / BED: / AGE / SEX: 74 / M ADM STATUS: REG ER SERVICE 1051 ORDERING PHYSICIAN: ROBI HANKS MD PROCEDURE(s): HWOCT - HEAD WITHOUT CONTRAST REASON: dizzy ORDER NUMBER(s): [id number], ACCESSION NUMBER(s): [id number] EXAM: CT HEAD WITHOUT CONTRAST HISTORY: dizzy COMPARISON: CT HEAD WITHOUT CONTRAST on DOS: 09/30/23, CT HEAD WITHOUT CONTRAST on DOS: 06/06/23 TECHNIQUE: Axial images of the head were obtained and reformatted in coronal and sagittal planes. All CT scans at this medical facility are performed using dose modulation techniques as appropriate to a performed exam including the following: Automated exposure control was utilized; adjustment of the MA and/or KV according to patient size; and use of iterative reconstruction technique. CT Dose: CTDI volume is 58 mGy. Dose-length product is 1024 mGy*cm FINDINGS: There is no evidence of acute intracranial hemorrhage, mass, mass effect midline shift. There is no hydrocephalus or extra-axial fluid collection. Cisneros-white matter differentiation is maintained. The visualized paranasal sinuses and mastoid air cells are clear. The calvarium is intact. IMPRESSION: 1. No acute intracranial process. HS:Y ATED BY: JARVIS ALFORD MD DICTATED DATE/TIME: 04/28/24 1217 SIGNED BY: JARVIS ALFORD MD SIGNED DATE/TIME: 04/28/24 1217 CC: Patient alert. Complaining of chest pain headache. Vitals stable. Answering questions. Blood sugar elevated. Denies using medication for his blood sugar. Cardiac risk factors. Possibly will need MRI. Explained to the patient. Continue cardiac monitoring. EKG reviewed does not show any acute changes. Time of 1ST Reevaluation: 11:30 Reevaluation 1ST: Unchanged Patient Education/Counseling: Diagnosis, Treatment Family Education/Counseling: No Family Present Departure 1 Departure Time of Disposition: 11:27 Impression: Primary Impression: Chest pain of unknown etiology Additional Impressions: Hypertension Qualified Codes: I10 - Essential (primary) hypertension Uncontrolled diabetes mellitus Qualified Codes: E13.65 - Other specified diabetes mellitus with hyperglycemia Disposition: ADMITTED INPATIENT Admit to: Med Surg Condition: Guarded Critical Care Note Critical Care Time?: No Stability Stability form required: No Heart Score Heart Score: Heart Score Response (Comments) Value History Slightly Suspicious 0 EKG Normal 0 Age >65 2 Risk Factors >3 or Hx ASHD 2 Troponin Normal limit 0 Total 4 I personally scribed for ROBI HANKS MD ([email or web address]) on 04/28/24 at 11:20. Electronically submitted by Mari Kitchen ([email or web address]). I personally scribed for ROBI HANKS MD ([email or web address]) on 04/28/24 at 11:24. Electronically submitted by Mari Kitchen ([email or web address]). I personally scribed for ROBI HANKS MD ([email or web address]) on 04/28/24 at 12:58. Electronically submitted by Mari Kitchen ([email or web address]). I personally scribed for ROBI HANKS MD ([email or web address]) on 04/28/24 at 17:41. Electronically submitted by Mari Kitchen ([email or web address]). ROBI HANKS MD Apr 28, 2024 11:20
[2024-04-28 11:22] LABS: Urine Bacteria None Seen /hpf (None Seen)
[2024-04-28 11:49] LABS: Basophils # (auto) 0 10 ^3/uL (0-0.2); Basophils % (auto) 0.5 % (0.0-2.0); Eosinophils # (auto) 0 10 ^3/uL (0-0.8); Eosinophils % (auto) 1.5 % (0.0-7.0); Hematocrit 44.8 % (41.0-53.0); Hemoglobin 15.3 g/dL (13.5-17.5); Lymphocytes # (auto) 0.8 10 ^3/uL (0.4-5.4); Lymphocytes % (auto) 26.3 % (10.0-50.0); Mean Corpuscular Hemoglobin 32.3 pg (28.0-32.0); Mean Corpuscular Hgb Conc. 34.1 g/dL (32.0-36.0); Mean Corpuscular Volume 94.7 fL (80.0-100.0); Monocytes # (auto) 0.3 10 ^3/uL (0-1.3); Monocytes % (auto) 9.6 % (0.0-12.0); Neutrophils # (auto) 1.9 10 ^3/uL (1.6-8.6); Neutrophils % (auto) 62.1 % (37.0-80.0); Nucleated Red Blood Cells % 0.3 %; Platelet Count (auto) 184 10^3/uL (140-450); Red Blood Cells 4.73 10^6/uL (4.5-5.90); Red Cell Distribution Width 14.5 % (11.8-14.3); White Blood Cell 3.1 10^3/uL (4.4-10.8)
[2024-04-28 11:56] LABS: Chloride 103 mmol/L (98-107); Potassium 4.7 mmol/L (3.5-5.1); Sodium 136 mmol/L (136-145)
[2024-04-28 11:57] LABS: Anion Gap 4 (5-15); Carbon Dioxide 29 mmol/L (20-31)
[2024-04-28 11:58] LABS: Urine Blood Negative /uL (Negative); Urine Clarity Clear (Clear); Urine Color Yellow (Yellow); Urine Mucus FEW (None Seen); Urine Protein, UAD TRACE (Negative); Urine Specific Gravity 1.034 (1.001-1.035); Urine Squamous Epithelial Cell None Seen /hpf (<5); Urine Urobilinogen 2 mg/dL (Negative); Urine WBC < 1 /HPF (0-3); Urine pH 5.5 (5.0-9.0)
[2024-04-28 12:00] LABS: Calcium 10.7 mg/dL (8.7-10.4)
[2024-04-28 12:02] LABS: BUN/Creatinine Ratio 12.1 (10.0-20.0); Blood Urea Nitrogen 12 mg/dL (9-23)
[2024-04-28 12:15] LABS: Glucose 163 mg/dL (74-106)
--- NOTE | 2024-04-28 12:19 | DVHHP2 ---
Patient Family History: Patient reports no known family medical history. Allergies: Coded Allergies: NO KNOWN ALLERGIES (Unverified , 06/06/23) Home Meds Active Scripts Clonidine Hydrochloride (Clonidine Hcl) 0.2 Mg Tab, 1 TAB PO BID, #20 TAB 0 Refills To be used if systolic pressures above 160 or diastolic pressures above 90. Prov:CLARITA BOLIVAR PAC 03/08/24 Bismuth Subsalicylate (PEPTO-BISMOL TO-GO) 262 Mg Chw, 262 MG PO BID for 10 Days, #20 TAB.CHEW Prov:ZAHRA GONZALES MD 10/26/23 Probiotic Product (Probiotic 10 Ultra Streng) 1 Cap Cap, 1 CAP PO B.i.d. for 15 Days, #30 CAP Prov:ZAHRA GONZALES MD 10/26/23 Pantoprazole Sodium Sesquihydr (Pantoprazole Sodium) 40 Mg Tab, 40 MG PO DAILY for 30 Days, #30 TAB Prov:IMELDA ALEXANDER [employer]OU[employer] SALESMAN AND DRIVER 10/20/23 Aspirin (Aspirin Low Dose) 81 Mg Tab, 81 MG PO DAILY for 30 Days, #30 TAB Prov:MIGUEL GORDILLO MEDICARE INSURANCE SPECIALIST 10/02/23 Reported Medications Triamcinolone Acetonide (Triamcinolone Acetonide) 0.025 % Cre, 4 GRAMS TOP BID Apply 4 grams topically to the affected area twice daily. 10/17/23 Ibuprofen (Ibuprofen) 800 Mg Tab, 1 TAB PO Q8HR PRN 10/17/23 Gabapentin (Gabapentin) 100 Mg Cap, 1 CAP PO TID 10/01/23 Finasteride (Finasteride) 5 Mg Tab, 1 TAB PO DAILY 10/01/23 Tamsulosin Hcl (Tamsulosin Hcl) 0.4 Mg Cap, 2 CAP PO DAILY 10/01/23 Metoprolol Tartrate (Lopressor) 25 Mg Tb, 1 TAB PO DAILY 10/01/23 Amlodipine Besylate (Amlodipine Besylate) 5 Mg Tab, 1 TAB PO DAILY 10/01/23 Current Medications Current Medications Medications (Trade) Dose Ordered Sig/[place] Route PRN Reason Start Time Stop Time Status Last Admin Acetaminophen/ Hydrocodone Bitart ([place] 5/325MG Tab) 1 tab Q4HP PRN PO MODERATE PAIN (4-6 PAIN SCALE) 04/28/24 12:30 Acetaminophen (Tylenol Tablet) 650 mg Q6HP PRN PO PAIN SCALE 1-3 OR TEMP>100.4 04/28/24 12:30 Morphine Sulfate 2 mg Q4HPRN PRN IV SEVERE PAIN (7-10 PAIN SCALE) 04/28/24 12:30 Enoxaparin Sodium (Lovenox) 40 mg DAILY SC 04/29/24 10:00 Nitroglycerin (Ntrostat Sublingual) 0.4 mg Q5MIN PRN SL FOR CHEST PAIN 04/28/24 12:30 Nitroglycerin (Ntrostat Sublingual) 0.4 mg Q5MINP PRN SL FOR CHEST PAIN 04/28/24 12:30 04/28/24 12:25 DC Morphine Sulfate 2 mg Q30M PRN IV FOR CHEST PAIN 04/28/24 12:30 Pantoprazole Sodium (Protonix) 40 mg DAILY IV 04/28/24 12:30 Diagnostic Test (Pha) (Accu-Chek Comfort Curve T) 1 strip ACHS 04/28/24 17:00 UNV Insulin Human Regular (InsuLIN R) HS SC 04/28/24 22:00 UNV Insulin Human Regular (InsuLIN R) AC SC 04/28/24 17:00 UNV Dextrose 50 ml UD PRN IV Blood Sugar LESS THAN 60 04/28/24 12:45 UNV Vital Signs Vital Signs Date Time Temp Pulse Resp B/P (MAP) Pulse Ox O2 Delivery O2 Flow Rate FiO2 04/28/24 12:14 Room Air* 0 21 04/28/24 12:00 98.4 82 16 100/72 (81) 98 98.4 Results Labs Test 04/28/24 12:00 04/28/24 11:12 04/28/24 11:05 04/28/24 11:04 Range/Units Troponin I High Sensitivity 3 L </=54 ng/L White Blood Count 3.1 L 4.4-10.8 10^3/uL Red Blood Count 4.73 4.5-5.90 10^6/uL Hemoglobin 15.3 13.5-17.5 g/dL Hematocrit 44.8 41.0-53.0 % Mean Corpuscular Volume 94.7 80.0-100.0 fL Mean Corpuscular Hemoglobin 32.3 H 28.0-32.0 pg Mean Corpuscular Hemoglobin Concent 34.1 32.0-36.0 g/dL Red Cell Distribution Width 14.5 H 11.8-14.3 % Platelet Count 184 140-450 10^3/uL Mean Platelet Volume 7.9 6.9-10.8 fL Neutrophils (%) (Auto) 62.1 37.0-80.0 % Lymphocytes (%) (Auto) 26.3 10.0-50.0 % Monocytes (%) (Auto) 9.6 0.0-12.0 % Eosinophils (%) (Auto) 1.5 0.0-7.0 % Basophils (%) (Auto) 0.5 0.0-2.0 % Neutrophils # (Auto) 1.9 1.6-8.6 10 ^3/uL Lymphocytes # (Auto) 0.8 0.4-5.4 10 ^3/uL Monocytes # (Auto) 0.3 0-1.3 10 ^3/uL Eosinophils # (Auto) 0 0-0.8 10 ^3/uL Basophils # (Auto) 0 0-0.2 10 ^3/uL Nucleated Red Blood Cells 0.3 % Sodium Level 136 136-145 mmol/L Potassium Level 4.7 3.5-5.1 mmol/L Chloride Level 103 98-107 mmol/L Carbon Dioxide Level 29 20-31 mmol/L Anion Gap 4 L 5-15 Blood Urea Nitrogen 12 9-23 mg/dL Creatinine 0.99 0.700-1.30 mg/dL Glomerular Filtration Rate Calc 79 >90 mL/min BUN/Creatinine Ratio 12.1 10.0-20.0 Serum Glucose 163 H 74-106 mg/dL Calcium Level 10.7 H 8.7-10.4 mg/dL Urine Color Yellow Yellow Urine Clarity Clear Clear Urine pH 5.5 5.0-9.0 Urine Specific [place] 1.034 1.001-1.035 Urine Protein Trace H Negative Urine Ketones 1+ H Negative Urine Blood Negative Negative /uL Urine Nitrite Negative Negative Urine Bilirubin Negative Negative Urine Urobilinogen 2 H Negative mg/dL Urine Leukocyte Esterase Negative Negative /uL Urine RBC 1 0 - 3 /hpf Urine Microscopic WBC < 1 0-3 /HPF Urine Squamous Epithelial Cells None seen <5 /hpf Urine Bacteria None seen None Seen /hpf Urine Mucus Few None Seen Urine Glucose Normal Normal mg/dL POC Glucose 162 H 70-106 mg/dl MIGUEL GORDILLO MEDICARE INSURANCE SPECIALIST Apr 28, 2024 12:19
--- NOTE | 2024-04-28 12:19 | DVH ---
EXAM: CT HEAD WITHOUT CONTRAST HISTORY: dizzy COMPARISON: CT HEAD WITHOUT CONTRAST on DOS: 09/30/23, CT HEAD WITHOUT CONTRAST on DOS: 06/06/23 TECHNIQUE: Axial images of the head were obtained and reformatted in coronal and sagittal planes. All CT scans at this medical facility are performed using dose modulation techniques as appropriate t o a performed exam including the following: Automated exposure control was utilized; adjustment of th e MA and/or KV according to patient size; and use of iterative reconstruction technique. CT Dose: CTDI volume is 58 mGy. Dose-length product is 1024 mGy*cm FINDINGS: There is no evidence of acute intracranial hemorrhage, mass, mass effect midline shift. There is no h ydrocephalus or extra-axial fluid collection. Cisneros-white matter differentiation is maintained. The visualized paranasal sinuses and mastoid air cells are clear. The calvarium is intact. IMPRESSION: 1. No acute intracranial process. HS:Y
[2024-04-28] MEDS ORDERED: MORPHINE SULFATE INJ 2 MG/ml SYRG IV PRN (12:30)
[2024-04-28] MEDS ORDERED: NITROGLYCERIN 0.4 MG SL TAB SL PRN ×2 (12:30)
[2024-04-28] MEDS ORDERED: DEXTROSE (50%) 50ML SYRG IV PRN (12:45)
[2024-04-28 12:54] VITALS: PULSE 60; RESP 12; O2SAT 96
[2024-04-28] MEDS: PANTOPRAZOLE 40 MG/10 ML VIAL INJ IV SCH (13:06)
[2024-04-28] MEDS: HYDROcodone-ACET 5/325MG TAB PO PRN (15:06)
[2024-04-28] MEDS: InsuLIN REG 1unit/0.01ml Soln (100units/ml) SC SCH ×2 (17:00→22:00)
[2024-04-28] MEDS: ACCU-CHEK COMFORT CURVE STRIP VI SCH (17:11)
[2024-04-28 19:35] VITALS: PULSE 74; RESP 16; O2SAT 100
[2024-04-28] MEDS: MORPHINE SULFATE INJ 2 MG/ml SYRG IV PRN (20:21)
[2024-04-28 21:42] VITALS: BP 136/83; PULSE 63; RESP 16; TEMP 97.7; O2SAT 98
[2024-04-28] MEDS: ACETAMINOPHEN 325 MG TAB PO PRN (22:08)
[2024-04-28 22:20] VITALS: PULSE 58; RESP 18; O2SAT 98
[2024-04-29 01:04] VITALS: BP 131/74; PULSE 64; RESP 16; TEMP 97.6; O2SAT 98
[2024-04-29 05:06] VITALS: BP 149/60; PULSE 77; RESP 17; TEMP 98.1; O2SAT 98
[2024-04-29 07:05] LABS: Basophils # (auto) 0 10 ^3/uL (0-0.2); Basophils % (auto) 0.5 % (0.0-2.0); Eosinophils # (auto) 0.1 10 ^3/uL (0-0.8); Eosinophils % (auto) 1.9 % (0.0-7.0); Hematocrit 38.2 % (41.0-53.0); Hemoglobin 13.2 g/dL (13.5-17.5); Lymphocytes # (auto) 1.1 10 ^3/uL (0.4-5.4); Lymphocytes % (auto) 30.7 % (10.0-50.0); Mean Corpuscular Hemoglobin 32.3 pg (28.0-32.0); Mean Corpuscular Hgb Conc. 34.5 g/dL (32.0-36.0); Mean Corpuscular Volume 93.8 fL (80.0-100.0); Monocytes # (auto) 0.4 10 ^3/uL (0-1.3); Monocytes % (auto) 10.8 % (0.0-12.0); Neutrophils # (auto) 1.9 10 ^3/uL (1.6-8.6); Neutrophils % (auto) 56.1 % (37.0-80.0); Nucleated Red Blood Cells % 0.1 %; Platelet Count (auto) 167 10^3/uL (140-450); Red Blood Cells 4.07 10^6/uL (4.5-5.90); Red Cell Distribution Width 14.2 % (11.8-14.3); White Blood Cell 3.4 10^3/uL (4.4-10.8)
[2024-04-29 07:23] LABS: Alanine Aminotransferase 20 U/L (7-40); Albumin 3.9 g/dL (3.2-4.8); Alkaline Phosphatase 50 U/L (46-116); Anion Gap 5 (5-15); Aspartate Aminotransferase 20 U/L (13-40); BUN/Creatinine Ratio 14.9 (10.0-20.0); Bilirubin, Total 0.5 mg/dL (0.2-1.0); Blood Urea Nitrogen 13 mg/dL (9-23); Calcium 9.9 mg/dL (8.7-10.4); Carbon Dioxide 27 mmol/L (20-31); Chloride 104 mmol/L (98-107); Glucose 89 mg/dL (74-106); Potassium 3.9 mmol/L (3.5-5.1); Sodium 136 mmol/L (136-145)
[2024-04-29 07:29] LABS: Total Protein 5.7 g/dL (5.7-8.2)
[2024-04-29 08:00] VITALS: PULSE 60; PULSE 63; RESP 16; O2SAT 96
[2024-04-29 09:00] VITALS: BP 135/84; PULSE 60; RESP 16; TEMP 98.5; O2SAT 96
--- NOTE | 2024-04-29 10:26 | DVHINCON2 ---
Date of service: Apr 29, 2024 History of Present Illness HPI Patient was a 74-year-old gentleman who presented with headache and chest discomfort going back for 15 days. Headache has been constant and CVA. Chest pain has been occasional. Patient was known to our practice from previous visit in 2023. Does have history of hiatal hernia which produces chest discomfort for him occasionally. Home Meds Active Scripts Clonidine Hydrochloride (Clonidine Hcl) 0.2 Mg Tab, 1 TAB PO BID, #20 TAB 0 Refills To be used if systolic pressures above 160 or diastolic pressures above 90. Prov:CLARITA BOLIVAR PAC 03/08/24 Bismuth Subsalicylate (PEPTO-BISMOL TO-GO) 262 Mg Chw, 262 MG PO BID for 10 Days, #20 TAB.CHEW Prov:ZAHRA GONZALES MD 10/26/23 Probiotic Product (Probiotic 10 Ultra Streng) 1 Cap Cap, 1 CAP PO B.i.d. for 15 Days, #30 CAP Prov:ZAHRA GONZALES MD 10/26/23 Pantoprazole Sodium Sesquihydr (Pantoprazole Sodium) 40 Mg Tab, 40 MG PO DAILY for 30 Days, #30 TAB Prov:IMELDA ALEXANDER FORKLIFT SUPERVISOR 10/20/23 Aspirin (Aspirin Low Dose) 81 Mg Tab, 81 MG PO DAILY for 30 Days, #30 TAB Prov:MIGUEL GORDILLO BACK ORDER CLERK 10/02/23 Reported Medications Triamcinolone Acetonide (Triamcinolone Acetonide) 0.025 % Cre, 4 GRAMS TOP BID Apply 4 grams topically to the affected area twice daily. 10/17/23 Ibuprofen (Ibuprofen) 800 Mg Tab, 1 TAB PO Q8HR PRN 10/17/23 Gabapentin (Gabapentin) 100 Mg Cap, 1 CAP PO TID 10/01/23 Finasteride (Finasteride) 5 Mg Tab, 1 TAB PO DAILY 10/01/23 Tamsulosin Hcl (Tamsulosin Hcl) 0.4 Mg Cap, 2 CAP PO DAILY 10/01/23 Metoprolol Tartrate (Lopressor) 25 Mg Tb, 1 TAB PO DAILY 10/01/23 Amlodipine Besylate (Amlodipine Besylate) 5 Mg Tab, 1 TAB PO DAILY 10/01/23 Past Medical History Others Past medical history includes prediabetes, hypertension, gastritis, old history of cholecystectomy and hernia repair. He does have history of hiatal hernia. Patient Family History: Patient reports no known family medical history. Smoker: No Hx (Negative) Alocohol: None Drugs: None Review of Systems Constitutional: No symptom reported Pulmonary/Respiratory: Pleuritic Chest Pain Cardiovascular: Chest Pain All Other Systems Fourteen point review of system was performed. Relevant findings as per above and as per HPI. Otherwise negative H&P Exam Vital Signs Vital Signs Date Time Temp Pulse Resp B/P (MAP) Pulse Ox O2 Delivery O2 Flow Rate FiO2 04/29/24 09:00 98.5 60 16 135/84 (101) 96 98.5 04/28/24 22:20 Room Air* 0 21 General Appeara: Well developed, Well nourished Head Exam: Normal inspection Neck Exam: Normal inspection Eye Exam: bilateral eye PERRL Mouth: Normal Inspection Pulmonary/Respiratory: Normal inspection, Lungs clear Cardiovascular/Chest: Normal inspection, Regular rate Peripheral Pulses: 2+ carotid (R), 2+ carotid (L), 2+ femoral (R), 2+ femoral (L), 2+ dorsalis pedis (R), 2+ dorsalis pedis (L), 2+ Radial (R), 2+ Radial (L) Abdominal Exam: Normal bowel sounds, Soft, No hepatospenomegaly Neuro/Mental St: Alert, Oriented Appearance: Appropriate appearance Eye contact/ Speech: Cooperative Labs/Xrays Labs Test 04/29/24 06:07 04/29/24 05:56 04/28/24 14:14 04/28/24 11:05 Range/Units POC Glucose 95 70-106 mg/dl White Blood Count 3.4 L 4.4-10.8 10^3/uL Red Blood Count 4.07 L 4.5-5.90 10^6/uL Hemoglobin 13.2 L 13.5-17.5 g/dL Hematocrit 38.2 #L 41.0-53.0 % Mean Corpuscular Volume 93.8 80.0-100.0 fL Mean Corpuscular Hemoglobin 32.3 H 28.0-32.0 pg Mean Corpuscular Hemoglobin Concent 34.5 32.0-36.0 g/dL Red Cell Distribution Width 14.2 11.8-14.3 % Platelet Count 167 140-450 10^3/uL Mean Platelet Volume 8.1 6.9-10.8 fL Neutrophils (%) (Auto) 56.1 37.0-80.0 % Lymphocytes (%) (Auto) 30.7 10.0-50.0 % Monocytes (%) (Auto) 10.8 0.0-12.0 % Eosinophils (%) (Auto) 1.9 0.0-7.0 % Basophils (%) (Auto) 0.5 0.0-2.0 % Neutrophils # (Auto) 1.9 1.6-8.6 10 ^3/uL Lymphocytes # (Auto) 1.1 0.4-5.4 10 ^3/uL Monocytes # (Auto) 0.4 0-1.3 10 ^3/uL Eosinophils # (Auto) 0.1 0-0.8 10 ^3/uL Basophils # (Auto) 0 0-0.2 10 ^3/uL Nucleated Red Blood Cells 0.1 % Sodium Level 136 136-145 mmol/L Potassium Level 3.9 3.5-5.1 mmol/L Chloride Level 104 98-107 mmol/L Carbon Dioxide Level 27 20-31 mmol/L Anion Gap 5 5-15 Blood Urea Nitrogen 13 9-23 mg/dL Creatinine 0.87 0.700-1.30 mg/dL Glomerular Filtration Rate Calc 89 >90 mL/min BUN/Creatinine Ratio 14.9 10.0-20.0 Serum Glucose 89 74-106 mg/dL Calcium Level 9.9 8.7-10.4 mg/dL Total Bilirubin 0.5 0.2-1.0 mg/dL Aspartate Amino Transferase (AST) 20 13-40 U/L Alanine Aminotransferase (ALT) 20 7-40 U/L Alkaline Phosphatase 50 46-116 U/L Total Protein 5.7 5.7-8.2 g/dL Albumin 3.9 3.2-4.8 g/dL Troponin I High Sensitivity 4 </=54 ng/L Urine Color Yellow Yellow Urine Clarity Clear Clear Urine pH 5.5 5.0-9.0 Urine Specific [place] 1.034 1.001-1.035 Urine Protein Trace H Negative Urine Ketones 1+ H Negative Urine Blood Negative Negative /uL Urine Nitrite Negative Negative Urine Bilirubin Negative Negative Urine Urobilinogen 2 H Negative mg/dL Urine Leukocyte Esterase Negative Negative /uL Urine RBC 1 0 - 3 /hpf Urine Microscopic WBC < 1 0-3 /HPF Urine Squamous Epithelial Cells None seen <5 /hpf Urine Bacteria None seen None Seen /hpf Urine Mucus Few None Seen Urine Glucose Normal Normal mg/dL Assessment/Plan Plan Patient was a 74-year-old gentleman who presented with headache and chest discomfort going back for 15 days. Headache has been constant and CVA. Chest pain has been occasional. Patient was known to our practice from previous visit in 2023. Does have history of hiatal hernia which produces chest discomfort for him occasionally. Cardiology is involved for cardiac aspects of care. He mentions some chest discomfort while coughing. Not in acute distress. Not using accessory muscles of breathing. No JVD. Mucosa is pink and wet. No carotid bruit. Cardiac: Regular, no thrill/gallop. Chest: Not using accessory muscles of breathing. Lungs are clear to auscultation. Abdomen: Bowel sounds positive. Mild epigastric tenderness is present. There is no rebound tenderness. There is no gross mass. Extremities: No edema. Dorsalis is 2+ bilateral Past medical history includes prediabetes, hypertension, gastritis, old history of cholecystectomy and hernia repair. He does have history of hiatal hernia. Denies ever smoking. Denies substance abuse. Denies relevant family history. Echocardiogram of October 02, 2023 revealed ejection fraction of 65-70%, trace MR/TR and right ventricular systolic pressure of 29 mm Hg Creatinine: 0.99 - 0.87 Potassium: 4.7 - 3.9 Troponin (high sensitive): 3 - 3 - 4 CT scan of the head reported: IMPRESSION: 1. No acute intracranial process. EKG reveals sinus rhythm, left axis deviation and no ST-T changes Tele reveals sinus rhythm Patient is a 74-year-old gentleman who presented with headache and atypical [address] pain. Serial high sensitive troponin has been negative. Acute coronary syndrome is not considered at this point. Does have history of hiatal hernia which could have contributed to the chest discomfort. Headache to be evaluated by primary team/neurology. Headache Atypical chest pain Pleuritic chest pain Hypertension Prediabetes Cardiac suggestion for management: Manage on telemetry Follow-up electrolytes and kidney function test and correct abnormalities. Keep potassium above 4 and magnesium above 2 You can request a repeat echocardiogram Evaluation and management of headache as per primary team Ischemic workup/stress test can be performed as outpatient Thank you for consultation Further evaluation and management depends on the above and clinical course A total of 75 minutes was spent reviewing the patient record, examining the patient, making a diagnostic and therapeutic plan, discussing this plan with medical personnel, following up on diagnostic studies and following the patient for clinical stability excluding any and all procedures. At least 50% of this time was spent in direct, [id number] contact. Thank you for allowing me to participate in this patient's care. Further recommendations will depend on patient's clinical course. Please do not hesitate to contact me if you have any questions or concerns. This medical document was created using electronic medical record system with [employer] computerized dictation system. Although this document has been carefully reviewed, there may still be some phonetic and typographical errors. These areas are purely typographical due to the imperfection of the software programs, and do not reflect any compromise in the patient's medical care. Plan discussed with: Patient, Other (nurse) CLARITA RESTREPO MD Apr 29, 2024 10:26
[2024-04-29] MEDS: ENOXAPARIN SOD 40 MG/0.4 ML SYRINGE SC SCH (10:27)
[2024-04-29 13:00] VITALS: BP 155/89; PULSE 67; RESP 16; TEMP 98.8; O2SAT 97
[2024-04-29 16:20] VITALS: BP 150/80; PULSE 70; RESP 15; TEMP 98.9; O2SAT 97
--- NOTE | 2024-04-29 16:43 | DVHHP2 ---
History of Present Illness Reason for Visit: Chest/epigastric discomfort and dizziness History of Present Illness Asked to take over patient's care today given he belongs to [facility]. Patient's chart is reviewed and discussed with the patient along with the nurse at bedside through lab analyst. Patient is admitted overnight for following issues. 74 y/o M with PMHX of HTN presents to the ED for CC of headache. Patient states, that he has been experiencing a back sided headache with associated symptoms of dizziness and chest pain [id number]. Patient relays, chest pain to be pressure like that is non-radiating. Patient denies social history. Patient denies fever, chills, dizziness, lightheadedness, or N/V/D. Says his headache is mild. No blurred vision or double vision. No weakness. No vertigo room spinning sensation. Patient says he has a hiatal hernia sometimes causes discomfort. Past Medical History DM, HTN, enlarged prostate Past Surgical History Cholecystectomy, Hernia Repair Family History: Hypertension Smoke: No ALCOHOL: rare Lives: with Family Review of Systems Review of Systems Denies any fevers chills or sweats. No vertigo symptoms. No shortness a breath. No weakness. Other review of systems reviewed normal. Allergies: Coded Allergies: NO KNOWN ALLERGIES (Unverified , 06/06/23) Medications Current Medications Medications Dose Ordered Sig/[place] Route Start Time Stop Time Status Last Admin Dose Admin Acetaminophen/ Hydrocodone Bitart 1 tab Q4HP PRN PO 04/28/24 12:30 04/28/24 15:06 1 TAB Acetaminophen 650 mg Q6HP PRN PO 04/28/24 12:30 04/29/24 10:27 650 MG Morphine Sulfate 2 mg Q4HPRN PRN IV 04/28/24 12:30 04/28/24 20:21 2 MG Enoxaparin Sodium 40 mg DAILY SC 04/29/24 10:00 04/29/24 10:27 40 MG Nitroglycerin 0.4 mg Q5MIN PRN SL 04/28/24 12:30 Morphine Sulfate 2 mg Q30M PRN IV 04/28/24 12:30 Pantoprazole Sodium 40 mg DAILY IV 04/28/24 12:30 04/29/24 10:26 40 MG Diagnostic Test (Pha) 1 strip ACHS 04/28/24 17:00 04/29/24 11:30 1 STRIP Insulin Human Regular HS SC 04/28/24 22:00 Insulin Human Regular AC SC 04/28/24 17:00 Dextrose 50 ml UD PRN IV 04/28/24 12:45 Exam Vital Signs Vital Signs Date Time Temp Pulse Resp B/P (MAP) Pulse Ox O2 Delivery O2 Flow Rate FiO2 04/29/24 13:00 98.8 67 16 155/89 (111) 97 98.8 04/29/24 08:00 Room Air* 0 21 Exam Alert awake oriented x3. Burmese-speaking gentleman. HEENT neck supple no JVD. Pupils equal round react to light. No nystagmus. Heart regular rate and rhythm S1 plus S2. No murmurs or gallops. Lungs fair air movement throughout the lung zones. Chest equal to expansion. No rales or wheezes. Abdomen is soft nontender positive bowel sounds. Extremities no edema positive distal pedal pulses. Neurologic no focal deficits. Labs/Xrays Labs Test 04/29/24 12:17 04/29/24 05:56 04/28/24 14:14 04/28/24 11:05 Range/Units POC Glucose 101 70-106 mg/dl White Blood Count 3.4 L 4.4-10.8 10^3/uL Red Blood Count 4.07 L 4.5-5.90 10^6/uL Hemoglobin 13.2 L 13.5-17.5 g/dL Hematocrit 38.2 #L 41.0-53.0 % Mean Corpuscular Volume 93.8 80.0-100.0 fL Mean Corpuscular Hemoglobin 32.3 H 28.0-32.0 pg Mean Corpuscular Hemoglobin Concent 34.5 32.0-36.0 g/dL Red Cell Distribution Width 14.2 11.8-14.3 % Platelet Count 167 140-450 10^3/uL Mean Platelet Volume 8.1 6.9-10.8 fL Neutrophils (%) (Auto) 56.1 37.0-80.0 % Lymphocytes (%) (Auto) 30.7 10.0-50.0 % Monocytes (%) (Auto) 10.8 0.0-12.0 % Eosinophils (%) (Auto) 1.9 0.0-7.0 % Basophils (%) (Auto) 0.5 0.0-2.0 % Neutrophils # (Auto) 1.9 1.6-8.6 10 ^3/uL Lymphocytes # (Auto) 1.1 0.4-5.4 10 ^3/uL Monocytes # (Auto) 0.4 0-1.3 10 ^3/uL Eosinophils # (Auto) 0.1 0-0.8 10 ^3/uL Basophils # (Auto) 0 0-0.2 10 ^3/uL Nucleated Red Blood Cells 0.1 % Sodium Level 136 136-145 mmol/L Potassium Level 3.9 3.5-5.1 mmol/L Chloride Level 104 98-107 mmol/L Carbon Dioxide Level 27 20-31 mmol/L Anion Gap 5 5-15 Blood Urea Nitrogen 13 9-23 mg/dL Creatinine 0.87 0.700-1.30 mg/dL Glomerular Filtration Rate Calc 89 >90 mL/min BUN/Creatinine Ratio 14.9 10.0-20.0 Serum Glucose 89 74-106 mg/dL Calcium Level 9.9 8.7-10.4 mg/dL Total Bilirubin 0.5 0.2-1.0 mg/dL Aspartate Amino Transferase (AST) 20 13-40 U/L Alanine Aminotransferase (ALT) 20 7-40 U/L Alkaline Phosphatase 50 46-116 U/L Total Protein 5.7 5.7-8.2 g/dL Albumin 3.9 3.2-4.8 g/dL Troponin I High Sensitivity 4 </=54 ng/L Urine Color Yellow Yellow Urine Clarity Clear Clear Urine pH 5.5 5.0-9.0 Urine Specific [place] 1.034 1.001-1.035 Urine Protein Trace H Negative Urine Ketones 1+ H Negative Urine Blood Negative Negative /uL Urine Nitrite Negative Negative Urine Bilirubin Negative Negative Urine Urobilinogen 2 H Negative mg/dL Urine Leukocyte Esterase Negative Negative /uL Urine RBC 1 0 - 3 /hpf Urine Microscopic WBC < 1 0-3 /HPF Urine Squamous Epithelial Cells None seen <5 /hpf Urine Bacteria None seen None Seen /hpf Urine Mucus Few None Seen Urine Glucose Normal Normal mg/dL Assessment/Plan Assessment/Plan Clinically stable. Patient is admitted to the hospital by another hospitalist overnight. Cardiology consultation. Serial troponins. Resume home medications. Proton pump inhibitor. Supportive care and treatment. Follow clinical management per clinical course and recommendations from the consultants. Plan discussed with: Patient, Other My Orders Orders - JENNIFER FOUNTAIN MD Procedure Category Date Status Time Communication Order ORDERS 04/29/24 Verified 16:36 Problem List: (1) Chest pain (2) Hypertension (3) Controlled diabetes mellitus JENNIFER FOUNTAIN MD Apr 29, 2024 16:43
[2024-04-29] MEDS ORDERED: PANT40T PO (16:44)
--- NOTE | 2024-04-29 16:46 | DVHDS2 ---
Discharge Summary Date of Admission Apr 28, 2024 at 12:16 Date of Discharge: Apr 29, 2024 Labs/Diagnostic Data: Laboratory Results Test 04/29/24 12:17 04/29/24 05:56 04/28/24 14:14 04/28/24 11:05 POC Glucose 101 mg/dl (70-106) White Blood Count 3.4 10^3/uL (4.4-10.8) Red Blood Count 4.07 10^6/uL (4.5-5.90) Hemoglobin 13.2 g/dL (13.5-17.5) Hematocrit 38.2 % (41.0-53.0) Mean Corpuscular Volume 93.8 fL (80.0-100.0) Mean Corpuscular Hemoglobin 32.3 pg (28.0-32.0) Mean Corpuscular Hemoglobin Concent 34.5 g/dL (32.0-36.0) Red Cell Distribution Width 14.2 % (11.8-14.3) Platelet Count 167 10^3/uL (140-450) Mean Platelet Volume 8.1 fL (6.9-10.8) Neutrophils (%) (Auto) 56.1 % (37.0-80.0) Lymphocytes (%) (Auto) 30.7 % (10.0-50.0) Monocytes (%) (Auto) 10.8 % (0.0-12.0) Eosinophils (%) (Auto) 1.9 % (0.0-7.0) Basophils (%) (Auto) 0.5 % (0.0-2.0) Neutrophils # (Auto) 1.9 10 ^3/uL (1.6-8.6) Lymphocytes # (Auto) 1.1 10 ^3/uL (0.4-5.4) Monocytes # (Auto) 0.4 10 ^3/uL (0-1.3) Eosinophils # (Auto) 0.1 10 ^3/uL (0-0.8) Basophils # (Auto) 0 10 ^3/uL (0-0.2) Nucleated Red Blood Cells 0.1 % Sodium Level 136 mmol/L (136-145) Potassium Level 3.9 mmol/L (3.5-5.1) Chloride Level 104 mmol/L (98-107) Carbon Dioxide Level 27 mmol/L (20-31) Anion Gap 5 (5-15) Blood Urea Nitrogen 13 mg/dL (9-23) Creatinine 0.87 mg/dL (0.700-1.30) Glomerular Filtration Rate Calc 89 mL/min (>90) BUN/Creatinine Ratio 14.9 (10.0-20.0) Serum Glucose 89 mg/dL (74-106) Calcium Level 9.9 mg/dL (8.7-10.4) Total Bilirubin 0.5 mg/dL (0.2-1.0) Aspartate Amino Transferase (AST) 20 U/L (13-40) Alanine Aminotransferase (ALT) 20 U/L (7-40) Alkaline Phosphatase 50 U/L (46-116) Total Protein 5.7 g/dL (5.7-8.2) Albumin 3.9 g/dL (3.2-4.8) Troponin I High Sensitivity 4 ng/L (</=54) Urine Color Yellow (Yellow) Urine Clarity Clear (Clear) Urine pH 5.5 (5.0-9.0) Urine Specific [place] 1.034 (1.001-1.035) Urine Protein Trace (Negative) Urine Ketones 1+ (Negative) Urine Blood Negative /uL (Negative) Urine Nitrite Negative (Negative) Urine Bilirubin Negative (Negative) Urine Urobilinogen 2 mg/dL (Negative) Urine Leukocyte Esterase Negative /uL (Negative) Urine RBC 1 /hpf (0 - 3) Urine Microscopic WBC < 1 /HPF (0-3) Urine Squamous Epithelial Cells None seen /hpf (<5) Urine Bacteria None seen /hpf (None Seen) Urine Mucus Few (None Seen) Urine Glucose Normal mg/dL (Normal) Other Laboratory Tests 04/29/24 05:56 Brief Hx & Hospital Course: 74 y/o M with PMHX of HTN presents to the ED for CC of headache. Patient states, that he has been experiencing a back sided headache with associated symptoms of dizziness and chest pain [id number]. Patient relays, chest pain to be pressure like that is non-radiating. Patient denies social history. Patient denies fever, chills, dizziness, lightheadedness, or N/V/D. Says his headache is mild. No blurred vision or double vision. No weakness. No vertigo room spinning sensation. Patient says he has a hiatal hernia sometimes causes discomfort. He is admitted and evaluated by general manager farm felt cardiac escudero no further interventions or workup needed. Patient symptoms felt possibly secondary to hiatal hernia with reflux disease. Therefore he is advised to take proton pump inhibitor. While in the hospital rest of his workup is stable. His head CT is normal. Patient is not having any dizziness or lightheadedness. Patient had orthostatic blood pressures checked his were normal. I have talked with the patient along with the nurse/agricultural produce commission agent at bedside regarding his hospital diagnosis, treatment, discharge medications and discharge instructions and follow-up plan of care. He has verbalized understanding of these and agree with the discharge care plan as mentioned Operations or Procedures 2D echo cord Conclusion Left ventricle: Mild concentric left ventricular hypertrophy was seen. LV EF was 60-65%. There was no gross wall motion abnormality. Right ventricle was normal sized with normal systolic function. Both atria were normal sized. Aortic valve: Aortic valve was trileaflet. There was mild aortic insufficiency. There was no aortic stenosis. There was no mitral regurgitation. There was mild tricuspid regurgitation. Pulmonic valve was not well visualized. Right ventricular systolic pressure was assessed at 31 mm Hg. There was no pericardial effusion. SIGNED BY: CLARITA RESTREPO MD SIGNED DATE/TIME: 04/30/24 0617 Condition at Discharge: Stable Final Diagnosis/Problems List Chest/epigastric discomfort Discharge Disposition: Home Discharge Instruct/Medications Diet: Consistent carbohydrate, Cardiac 2g Na,low cholest Activity: No Restrictions, As Tolerated Follow Up/Referral: Primary care physician next week and referral to neurologist for any recurrent/worsening dizziness or headaches in 1-2 weeks Medications: Home medications and as prescribed Continued Medications: Amlodipine Besylate (Amlodipine Besylate) 5 Mg Tab 1 TAB PO DAILY Aspirin (Aspirin Low Dose) 81 Mg Tab 81 MG PO DAILY for 30 Days, #30 TAB Bismuth Subsalicylate (Pepto-Bismol To-Go) 262 Mg Chw 262 MG PO BID for 10 Days, #20 TAB.CHEW Clonidine Hydrochloride (Clonidine Hcl) 0.2 Mg Tab 1 TAB PO BID, #20 TAB 0 Refills To be used if systolic pressures above 160 or diastolic pressures above 90. Finasteride (Finasteride) 5 Mg Tab 1 TAB PO DAILY Gabapentin (Gabapentin) 100 Mg Cap 1 CAP PO TID Ibuprofen (Ibuprofen) 800 Mg Tab 1 TAB PO Q8HR PRN Metoprolol Tartrate (Lopressor) 25 Mg Tb 1 TAB PO DAILY Pantoprazole Sodium Sesquihydr (Pantoprazole Sodium) 40 Mg Tab 40 MG PO DAILY for 30 Days, #30 TAB (This prescription has been renewed) Probiotic Product (Probiotic 10 Ultra Streng) 1 Cap Cap 1 CAP PO B.i.d. for 15 Days, #30 CAP Tamsulosin Hcl (Tamsulosin Hcl) 0.4 Mg Cap 2 CAP PO DAILY Triamcinolone Acetonide (Triamcinolone Acetonide) 0.025 % Cre 4 GRAMS TOP BID Apply 4 grams topically to the affected area twice daily. Discharge Statement: "Patient was advised to return to the ER or call 911 if any headaches, dizziness, shortness of breath, chest pain, abdominal pain, bleeding, fevers, or worsening of medical condition. Patient was counseled about treatment plan, medications, possible side effects, patientverbalized understanding. All questions were answered to the best of my ability. This discharge took greater then 30 minutes in planning, reviewing documentation, counseling the patient, and discussing with other team members." ASSESSMENT ASSESSMENT Assessment Chest/epigastric discomfort JENNIFER FOUNTAIN MD Apr 29, 2024 16:46
--- NOTE | 2024-04-30 06:17 | DVHSR ---
APPROVED REPORT EXAM: Two-dimensional and M-mode echocardiogram with Doppler and color Doppler. Blood Pressure: 135/84 mmHg INDICATION Chest Pain RISK FACTORS Height: 5'8", Weight: 170 DIMENSIONS LVDd4.3 (3.8-5.7cm)LA (2D)3.9 (1.9-4.0cm)Aortic Root3.5 (2.0-3.7cm) LVDs3.0 (2.5-4.0cm)LA (MM) (1.9-4.0cm)Aortic Cusp Exc2.0 (1.5-2.0cm) EF (%) 60.0 (55-70%)Rt. Atrium3.9 (1.9-4.0cm)Asc. Aorta cm IVSd1.3 (0.7-1.1cm)RV (D) (1.8-2.4cm) PWd1.2 (0.7-1.1cm) Mitral Valve MitralMitral Stenosis E wave0.42m/sMV Mean GR.mmHg A wave0.75m/sMV Peak GR.mmHg E/A ratio0.62D MVAcm2 DECEL [id number] 1/2 [place] Aortic Valve Aortic ValveAortic Stenosis V10.94m/Lan Mean GR.3mmHg V21.15m/Lan Peak GR.5mmHg LVOT Diameter2.3 (1.8-2.4cm)Doppler AVA3.39cm2 AI P 1/2 Gsrh774.10ms Pulmonic Valve V20.76m/s Tricuspid Valve TR Velocity2.39m/s [id number] Other Information Technically limited study due to body habitus. Conclusion Left ventricle: Mild concentric left ventricular hypertrophy was seen. LV EF was 60-65%. There was no gross wall motion abnormality. Right ventricle was normal sized with normal systolic function. Both atria were normal sized. Aortic valve: Aortic valve was trileaflet. There was mild aortic insufficiency. There was no aortic stenosis. There was no mitral regurgitation. There was mild tricuspid regurgitation. Pulmonic momo ve was not well visualized. Right ventricular systolic pressure was assessed at 31 mm Hg. There was no pericardial effusion.
--- NOTE | 2024-05-01 10:22 | ECG ---
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
== END 2024-04-29 18:30 | disposition home or self-care (01) | DRG 392 ==
LOC: ER 10:43 → TELE 12:16 → SUATTDRO 12:24 → TELE-CENTR 21:29
PROVIDERS: ADMIT Nurse Practitioner; ATTEND Nurse Practitioner
DX: K21.9 Gastro-esophageal reflux disease without esophagitis (principal); R07.89 Other chest pain; R51.9 Headache, unspecified; I10 Essential (primary) hypertension; E11.9 Type 2 diabetes mellitus without complications; N40.0 Benign prostatic hyperplasia without lower urinary tract symptoms; K44.9 Diaphragmatic hernia without obstruction or gangrene; Z79.899 Other long term (current) drug therapy; Z82.49 Family history of ischemic heart disease and other diseases of the circulatory system; Z90.49 Acquired absence of other specified parts of digestive tract; Z79.82 Long term (current) use of aspirin
CPT/HCPCS: 36415; 70450; 80048; 80053; 81001; 82962; 84484; 85025; 93306; 96374; 96375; G0378; J2470

== ENCOUNTER 2024-09-17 09:11 | Emergency (ER) | payer OTHER ==
[~2024-09-17] VITALS: Ht 172.7 cm; Wt 81.8 kg
--- NOTE | 2024-09-17 10:25 | ED.PDOC ---
History of Present Illness HPI Comments 74 year old male with a Hx of DM and HTN presents to the ED for the c/c of Bilateral Lower Back pain. Pt states that his back pain radiated to Buttocks for the past 1x month, but has worsened today. Pt denies any injury, or urinary symptoms. Denies history of chronic steroid use or history of osteoporosis Denies any history of cancer Denies fevers chills night sweats nausea vomiting unintentional weight loss Denies IV drug use history of HIV/TB Denies abdominal "tearing" pain Denies syncope Denies urinary incontinence or urinary changes Denies numbness tingling of the groin or inner thigh Denies previous back procedure or surgery Chief Complaint: Back Pain Time Seen by MD: 10:20 Primary Care Provider: MARIANNE Reviewed Notes: Nurses Notes, Medications, Allergies Allergies: Coded Allergies: NO KNOWN ALLERGIES (Unverified , 06/06/23) Home Meds Active Scripts Ibuprofen Micronized (Ibuprofen) 800 Mg Tab, 800 MG PO Q8HPRN PRN for 5 Days, #15 TAB 0 Refills Prov:MARKO DURANT NP 09/17/24 Pantoprazole Sodium Sesquihydr (Pantoprazole Sodium) 40 Mg Tab, 40 MG PO DAILY for 30 Days, #30 TAB Prov:JENNIFER FOUNTAIN MD 04/29/24 Clonidine Hydrochloride (Clonidine Hcl) 0.2 Mg Tab, 1 TAB PO BID, #20 TAB 0 Refills To be used if systolic pressures above 160 or diastolic pressures above 90. Prov:CLARITA BOLIVAR PAC 03/08/24 Bismuth Subsalicylate (PEPTO-BISMOL TO-GO) 262 Mg Chw, 262 MG PO BID for 10 Days, #20 TAB.CHEW Prov:ZAHRA GONZALES MD 10/26/23 Probiotic Product (Probiotic 10 Ultra Streng) 1 Cap Cap, 1 CAP PO B.i.d. for 15 Days, #30 CAP Prov:ZAHRA GONZALES MD 10/26/23 Aspirin (Aspirin Low Dose) 81 Mg Tab, 81 MG PO DAILY for 30 Days, #30 TAB Prov:MIGUEL GORDILLO NP 10/02/23 Reported Medications Triamcinolone Acetonide (Triamcinolone Acetonide) 0.025 % Cre, 4 GRAMS TOP BID Apply 4 grams topically to the affected area twice daily. 10/17/23 Ibuprofen (Ibuprofen) 800 Mg Tab, 1 TAB PO Q8HR PRN 10/17/23 Gabapentin (Gabapentin) 100 Mg Cap, 1 CAP PO TID 10/01/23 Finasteride (Finasteride) 5 Mg Tab, 1 TAB PO DAILY 10/01/23 Tamsulosin Hcl (Tamsulosin Hcl) 0.4 Mg Cap, 2 CAP PO DAILY 10/01/23 Metoprolol Tartrate (Lopressor) 25 Mg Tb, 1 TAB PO DAILY 10/01/23 Amlodipine Besylate (Amlodipine Besylate) 5 Mg Tab, 1 TAB PO DAILY 10/01/23 Information Source: Patient Mode of Arrival: Ambulatory Severity: Moderate Timing: Months Duration: Since onset Prehospital treatment: None Past Medical History PAST MEDICAL HISTORY: DM, HTN Surgical History: Cholecystectomy, Hernia Repair Family History Family History: Reviewed,noncontributory to illness Social History Smoker: Non-Smoker Alcohol: Denies ETOH Use Drugs: Denies Drug Use Lives In: Home Constitutional: denies: chills, diaphoresis, fatigue, fever, malaise, sweats, weakness, others EENTM: denies: blurred vision, double vision, ear bleeding, ear discharge, ear drainage, ear pain, ear ringing, eye pain, eye redness, hearing loss, mouth pain, mouth swelling, nasal discharge, nose bleeding, nose congestion, nose pain, photophobia, tearing, throat pain, throat swelling, voice changes, others Respiratory: denies: cough, hemoptysis, orthopnea, SOB at rest, shortness of breath, SOB with excertion, stridor, wheezing, others Cardiovascular: denies: chest pain, dizzy spells, diaphoresis, Dyspnea on exertion, edema, irregular heart beat, left arm pain, lightheadedness, palpitations, PND, syncope, others Gastrointestinal: denies: abdomen distended, abdominal pain, blood streaked bowels, constipated, diarrhea, dysphagia, difficulty swallowing, hematemesis, melena, nausea, poor appetite, poor fluid intake, rectal bleeding, rectal pain, vomiting, others Genitourinary: denies: burning, dysuria, flank pain, frequency, hematuria, incontinence, penile discharge, penile sore, pain, testicle pain, testicle swelling, urgency, others Neurological: denies: dizziness, fainting, headache, left sided numbness, left sided weakness, numbness, paresthesia, pre-existing deficit, right sided numbness, right sided weakness, seizure, speech problems, tingling, tremors, weakness, others Musculoskeletal: reports: back pain; denies: gout, joint pain, joint swelling, muscle pain, muscle stiffness, neck pain, others Integumetry: denies: bruises, change in color, change in hair/nails, dryness, laceration, lesions, lumps, rash, wounds, others Allergic/Immunocompromised: denies: Difficulty Healing, Frequent Infections, Hives, Itching, others Hematologic/Lymphatic: denies: anemia, blood clots, easy bleeding, easy bruising, swollen glands, others Endocrine: denies: excessive hunger, excessive sweating, excessive thirst, excessive urination, flushing, intolerance to cold, intolerance to heat, unexplained weight gain, unexplained weight loss, others Psychiatric: denies: anxiety, bipolar disorder, depression, hopeless, panic disorder, schizophrenia, sleepless, suicidal, others All Other Systems: Reviewed and Negative Physical Exam General Appearance: No Apparent Distress, Normal HEENT: Normal ENT Inspection, Pharynx Normal, TMs Normal Neck: Full Range of Motion, Non-Tender, Normal, Normal Inspection Respiratory: Chest Non-Tender, Lungs Clear, No Respiratory Distress, Normal Breath Sounds Cardiovascular: No Murmur, Regular Rate/Rhythm Breast Exam: Deferred Gastrointestinal: Non Tender, No Pulsatile Mass, Normal Bowel Sounds, Soft Genitalia: Deferred Pelvic: Deferred Rectal: Deferred Extremities: No calf tenderness, Normal range of motion, Non-tender, No pedal edema Musculoskeletal : Location: Bilateral Extremity Location: Back (lower BP. No midline TTP. NO stepoffs. Full ROM. ) Apperance: Normal Neurologic: Alert, No Motor Deficits, Normal Mood Cerebellar Function: Normal Reflexes: Normal Skin: Dry, Normal Color, Warm Lymphatic: No Adenopathy Was a procedure done? Was a procedure done?: No Differential Dx Considerations may include: strain, musculoskeletal X-Ray, Labs, Meds, VS Vital Signs Date Time Temp Pulse Resp B/P (MAP) Pulse Ox O2 Delivery O2 Flow Rate FiO2 09/17/24 10:53 98.4 97 20 118/85 (96) 98 98.4 09/17/24 10:53 97 20 98 Room Air 09/17/24 09:35 98.4 97 20 118/85 (96) 98 98.4 Current Medications Medications (Trade) Dose Ordered Sig/[place] Route Start Time Stop Time Status Last Admin Ketorolac Tromethamine (Toradol Injection) 60 mg ONCE ONCE IM 09/17/24 10:30 09/17/24 10:31 DC 09/17/24 10:51 Methylprednisolone Sodium Succinate (Solu Medrol) 125 mg ONCE ONCE IM 09/17/24 10:30 09/17/24 10:31 DC 09/17/24 10:51 X-Ray, Labs, Meds, VS Comment 74 year old male with a Hx of DM and HTN presents to the ED for the c/c of Bilateral Lower Back pain. Patient arrives alert and oriented, ABC's intact, afebrile, vital signs stable, saturating well in room air Presentation most consistent with no red flags. ED workup: Defer imaging and lab work for outpatient follow up at this time Disposition: Discharge. Strict return precautions discussed with the patient with full understanding. Supportive care advised (rest, ice, heat, NSAIDs, stretching exercises) Massage muscles with cold pack or ice for 20 minutes 4 times per day. Usually most useful if there is swelling during the first 48 hours Heating pad on the most painful area for 20 minutes to relieve muscle spasm Sleep and the most comfortable sleeping position (usually on the side with knees bent) Light stretching, no strenuous activity, avoid frequent bending, avoid carrying heavy objects Discussed possible benefits of yoga and acupuncture Return precautions discussed including Inability to walk/bear weight Paresthesia/weakness/leg pain Fecal/urinary incontinence Any worsening symptoms Patient was given:Toradol 60mg and Solumedrol 125mg_. Tolerated medications with no adverse reaction. Additional MDM Review of External, Non-ED records: External records reviewed. Discussion with independent historian (EMS, family) history obtained from the patient/parents (if applicable) at bedside Chronic conditions affecting care: None Social determinants of health affecting care: None Consideration of admission (observation or admission): I considered escalation of care to admission for this patient, however given the reassuring workup, the patient is safe for outpatient management. Time of 1ST Reevaluation: 10:50 Reevaluation 1ST: Improved Patient Education/Counseling: Diagnosis, Treatment Family Education/Counseling: No Family Present SEPSIS Sepsis Screen Date sepsis recognized/suspect: Sep 17, 2024 Time Sepsis recognized/suspect: 0935 Recent Procedure: No On Antibiotic Therapy: No Respiratory Rate >20: No Heart Rate >90: Yes Temp<36 C (96.8 F) or >38.3 C: No SBP <90 or MAP <65 mmHG: No New Acute Mental Status Change: No Is the patient on CPAP, BIPAP,: No Orders/Vitals/Labs Vital Signs Date Time Temp Pulse Resp B/P (MAP) Pulse Ox O2 Delivery O2 Flow Rate FiO2 09/17/24 10:53 98.4 97 20 118/85 (96) 98 98.4 09/17/24 10:53 97 20 98 Room Air 09/17/24 09:35 98.4 97 20 118/85 (96) 98 98.4 Medications Medications Dose Ordered Sig/[place] Route Start Time Stop Time Status Last Admin Dose Admin Ketorolac Tromethamine 60 mg ONCE ONCE IM 09/17/24 10:30 09/17/24 10:31 DC 09/17/24 10:51 Methylprednisolone Sodium Succinate 125 mg ONCE ONCE IM 09/17/24 10:30 09/17/24 10:31 DC 09/17/24 10:51 Departure 1 Departure Time of Disposition: 10:31 Impression: Primary Impression: Piriformis syndrome Qualified Codes: G57.00 - Lesion of sciatic nerve, unspecified lower limb Disposition: 01 HOME / SELF CARE / HOMELESS Condition: Stable e-Prescriptions Ibuprofen Micronized (Ibuprofen) 800 Mg Tab 800 MG PO Q8HPRN PRN for 5 Days, #15 TAB 0 Refills Prov: MARKO DURANT NP 09/17/24 Critical Care Note Critical Care Time?: No Stability Stability form required: No Heart Score Heart Score: Heart Score Response (Comments) Value History N/A 0 EKG N/A 0 Age N/A 0 Risk Factors N/A 0 Troponin N/A 0 Total 0 I personally scribed for MARKO DURANT BENCH INSPECTOR ([email or web address]) on 09/17/24 at 10:25. Electronically submitted by Lon Vasquez ([email or web address]). MARKO DURANT NP Sep 17, 2024 10:25
[2024-09-17] MEDS ORDERED: IBUP-1455 PO (10:31)
[2024-09-17] MEDS: KETOROLAC TROMETH 60MG/2ML VIAL IM ONE (10:51)
[2024-09-17] MEDS: methylPREDNISolone SOD SUCC 125 MG/2 ML VL IM ONE (10:51)
[2024-09-17 10:53] VITALS: BP 118/85; PULSE 97; RESP 20; TEMP 98.4; O2SAT 98
== END 2024-09-17 10:55 | disposition home or self-care (01) ==
LOC: ER 09:11
DX: G57.00 Lesion of sciatic nerve, unspecified lower limb (principal); I10 Essential (primary) hypertension; E11.9 Type 2 diabetes mellitus without complications; Z79.82 Long term (current) use of aspirin; Z79.899 Other long term (current) drug therapy; Z90.49 Acquired absence of other specified parts of digestive tract; Z98.890 Other specified postprocedural states
CPT/HCPCS: 96372; 99284; J1885; J2919

== ENCOUNTER 2024-09-24 08:17 | Emergency (ER) | payer OTHER ==
[~2024-09-24] VITALS: Ht 175.3 cm; Wt 80.5 kg
[~2024-09-24 08:17] MED LIST changes: +IBUP-1455 PO
[2024-09-24 09:45] VITALS: BP 143/87; PULSE 83; RESP 18; TEMP 98.1; O2SAT 98
--- NOTE | 2024-09-24 10:18 | DVH ---
EXAM: XY L HIP COMPLETE XRAY, XY R HIP COMPLETE XRAY CLINICAL INDICATION: Pain TECHNIQUE: XY L HIP COMPLETE XRAY, XY R HIP COMPLETE XRAY Comparison: None FINDINGS/IMPRESSION: There is no evidence of acute fracture or dislocation. Moderate bilateral hip osteoarthritis The alignment is anatomical. There is no radiopaque foreign body.
--- NOTE | 2024-09-24 10:45 | ED.PDOC ---
Back pain HPI HPI Comments A 74 year old male with hx of Peripheral neuropathy, hypertension, prostate issues, presents to the ED c/o bilateral buttock pain and hip pain. Patient states he has been experiencing bilateral buttock and hip pain that is worse when sitting down off and on for the past 1 month. Patient reports he came to this ED for the same complaint 1 week ago where he was given a steroid and pain medicine injection and was prescribed Ibuprofen 800mg, but notes there has been no improvement in his pain. No associated symptoms Denies history of chronic steroid use or history of osteoporosis Denies any history of cancer Denies fevers chills night sweats nausea vomiting unintentional weight loss Denies IV drug use history of HIV/TB Denies abdominal "tearing" pain Denies syncope Denies urinary incontinence or urinary changes Denies numbness tingling of the groin or inner thigh Denies previous back procedure or surgery Chief Complaint: Lower Extremity Time Seen by MD: 08:41 Primary Care Provider: MARIANNE Reviewed Notes: Nurses Notes, Medications, Allergies Allergies: Coded Allergies: NO KNOWN ALLERGIES (Unverified , 06/06/23) Home Meds Active Scripts Diclofenac Sodium (Topical) (Voltaren Arthritis Pain) 1 % Gel, 1 APPLIC EX QIDP for 10 Days, #60 GRAMS 0 Refills Prov:MARKO DURANT NP 09/24/24 Meloxicam (Meloxicam) 7.5 Mg Tab, 1 TAB PO BIDP PRN for 10 Days, #20 TAB 0 Refills Prov:MARKO DURANT NP 09/24/24 Ibuprofen Micronized (Ibuprofen) 800 Mg Tab, 800 MG PO Q8HPRN PRN for 5 Days, #15 TAB 0 Refills Prov:MARKO DURANT NP 09/17/24 Pantoprazole Sodium Sesquihydr (Pantoprazole Sodium) 40 Mg Tab, 40 MG PO DAILY for 30 Days, #30 TAB Prov:JENNIFER FOUNTAIN MD 04/29/24 Clonidine Hydrochloride (Clonidine Hcl) 0.2 Mg Tab, 1 TAB PO BID, #20 TAB 0 Refills To be used if systolic pressures above 160 or diastolic pressures above 90. Prov:CLARITA BOLIVAR PAC 03/08/24 Bismuth Subsalicylate (PEPTO-BISMOL TO-GO) 262 Mg Chw, 262 MG PO BID for 10 Days, #20 TAB.CHEW Prov:ZAHRA GONZALES MD 10/26/23 Probiotic Product (Probiotic 10 Ultra Streng) 1 Cap Cap, 1 CAP PO B.i.d. for 15 Days, #30 CAP Prov:ZAHRA GONZALES MD 10/26/23 Aspirin (Aspirin Low Dose) 81 Mg Tab, 81 MG PO DAILY for 30 Days, #30 TAB Prov:RANDMIGUEL Lizandro MURRAY 10/02/23 Reported Medications Triamcinolone Acetonide (Triamcinolone Acetonide) 0.025 % Cre, 4 GRAMS TOP BID Apply 4 grams topically to the affected area twice daily. 10/17/23 Ibuprofen (Ibuprofen) 800 Mg Tab, 1 TAB PO Q8HR PRN 10/17/23 Gabapentin (Gabapentin) 100 Mg Cap, 1 CAP PO TID 10/01/23 Finasteride (Finasteride) 5 Mg Tab, 1 TAB PO DAILY 10/01/23 Tamsulosin Hcl (Tamsulosin Hcl) 0.4 Mg Cap, 2 CAP PO DAILY 10/01/23 Metoprolol Tartrate (Lopressor) 25 Mg Tb, 1 TAB PO DAILY 10/01/23 Amlodipine Besylate (Amlodipine Besylate) 5 Mg Tab, 1 TAB PO DAILY 10/01/23 Information Source: Patient Mode of Arrival: Ambulatory Timing: Weeks Duration: Intermittent Location of Back pain: (B) Buttocks Severity: Moderate Prehospital treatment: None Quality: Aching, Cramping Onset: Spontaneous History of: Chronic Back Pain, None Modifying Factors: Nothing Associated signs and symptoms: None Past Medical History PAST MEDICAL HISTORY: DM, HTN Surgical History: Cholecystectomy, Hernia Repair Family History Family History: Reviewed,noncontributory to illness Social History Smoker: Non-Smoker Alcohol: Denies ETOH Use Drugs: Denies Drug Use Lives In: Home Constitutional: denies: chills, diaphoresis, fatigue, fever, malaise, sweats, weakness, others EENTM: denies: blurred vision, double vision, ear bleeding, ear discharge, ear drainage, ear pain, ear ringing, eye pain, eye redness, hearing loss, mouth pain, mouth swelling, nasal discharge, nose bleeding, nose congestion, nose pain, photophobia, tearing, throat pain, throat swelling, voice changes, others Respiratory: denies: cough, hemoptysis, orthopnea, SOB at rest, shortness of breath, SOB with excertion, stridor, wheezing, others Cardiovascular: denies: chest pain, dizzy spells, diaphoresis, Dyspnea on exertion, edema, irregular heart beat, left arm pain, lightheadedness, palpitations, PND, syncope, others Gastrointestinal: denies: abdomen distended, abdominal pain, blood streaked bowels, constipated, diarrhea, dysphagia, difficulty swallowing, hematemesis, melena, nausea, poor appetite, poor fluid intake, rectal bleeding, rectal pain, vomiting, others Genitourinary: denies: burning, dysuria, flank pain, frequency, hematuria, incontinence, penile discharge, penile sore, pain, testicle pain, testicle swelling, urgency, others Neurological: denies: dizziness, fainting, headache, left sided numbness, left sided weakness, numbness, paresthesia, pre-existing deficit, right sided numbness, right sided weakness, seizure, speech problems, tingling, tremors, weakness, others Musculoskeletal: reports: others (Bilateral buttock and hip pain); denies: back pain, gout, joint pain, joint swelling, muscle pain, muscle stiffness, neck pain Integumetry: denies: bruises, change in color, change in hair/nails, dryness, laceration, lesions, lumps, rash, wounds, others Allergic/Immunocompromised: denies: Difficulty Healing, Frequent Infections, Hives, Itching, others Hematologic/Lymphatic: denies: anemia, blood clots, easy bleeding, easy bruising, swollen glands, others Endocrine: denies: excessive hunger, excessive sweating, excessive thirst, excessive urination, flushing, intolerance to cold, intolerance to heat, unexplained weight gain, unexplained weight loss, others Psychiatric: denies: anxiety, bipolar disorder, depression, hopeless, panic disorder, schizophrenia, sleepless, suicidal, others All Other Systems: Reviewed and Negative Physical Exam General Appearance: No Apparent Distress, Normal HEENT: Normal ENT Inspection, Pharynx Normal, TMs Normal Neck: Full Range of Motion, Non-Tender, Normal, Normal Inspection Respiratory: Chest Non-Tender, Lungs Clear, No Accessory Muscle Use, No Respiratory Distress, Normal Breath Sounds Cardiovascular: No Edema, No JVD, No Murmur, No Gallop, Normal Peripheral Pulses, Regular Rate/Rhythm Breast Exam: Deferred Gastrointestinal: No Organomegaly, Non Tender, No Pulsatile Mass, Normal Bowel Sounds, Soft Genitalia: Deferred Pelvic: Deferred Rectal: Deferred Extremities: No calf tenderness, Normal capillary refill, Normal inspection, Normal range of motion, Non-tender, No pedal edema Musculoskeletal : Location: Bilateral Extremity Location: Back (No gross abnormality on inspection. No midline tenderness. No bony step-offs on palpation. No ecchymosis, no erythema, no open wounds. No TTP a throughout the paraspinal region. Localized TTP to the glutes.) Apperance: Normal Neurologic: Alert, deliverer outside II-XII nml as Tested, No Motor Deficits, Normal Affect, Normal Mood, No Sensory Deficits Cerebellar Function: Normal Reflexes: Normal Skin: Dry, Normal Color, Warm Lymphatic: No Adenopathy Was a procedure done? Was a procedure done?: No Back Pain Differential Dx Differential Diagnosis: Musculoskeletal Pain Other Differential Diagnosis DDD, lumbar radiculopathy, Sciatica X-Ray, Labs, Meds, VS Vital Signs Date Time Temp Pulse Resp B/P (MAP) Pulse Ox O2 Delivery O2 Flow Rate FiO2 09/24/24 09:45 83 18 98 Room Air 09/24/24 09:45 98.1 83 19 143/87 (105) 98 98.1 09/24/24 08:26 98.1 83 19 143/87 (105) 98 98.1 EXAM: XY L HIP COMPLETE XRAY, XY R HIP COMPLETE XRAY CLINICAL INDICATION: Pain TECHNIQUE: XY L HIP COMPLETE XRAY, XY R HIP COMPLETE XRAY Comparison: None FINDINGS/IMPRESSION: There is no evidence of acute fracture or dislocation. Moderate bilateral hip osteoarthritis The alignment is anatomical. There is no radiopaque foreign body. ATED BY: KATHERINE PATEL MD DICTATED DATE/TIME: 09/24/24 1016 SIGNED BY: KATHERINE PATEL MD SIGNED DATE/TIME: 09/24/24 1016 CC: X-Ray, Labs, Meds, VS Comment A 70 year old male presents to the ED c/o bilateral buttock pain and hip pain. Patient arrives alert and oriented, ABC's intact, afebrile, vital signs stable, saturating well in room air Diagnostic imaging ordered by me and results interpreted by radiology: XR hip LT, XR hip RT. findings are consistent with bilateral hip arthritis. Labs reviewed from Apr 2024. No kidney impairment The episode appears to be exacerbated by movements. The patient's motor strength and DTR's are currently intact. There are no signs or symptoms of cauda equina or cord compression at this time. No evidence of fracture on Xray. Differential diagnoses include piriformis syndrome, muscle strain versus arthralgia versus radicular/disk disease. The differential for an acute vascular, neurologic, malignant, or infectious etiologies is much less likely given his presentation. Patient able to ambulate. The patient will follow up with PMD to see if their symptoms kassidy. The patient was counseled in regards to the diagnosis and management of their condition and verbalized understanding of this. The patient understands to go to the ED or seek immediate medical attention if the symptoms worsen or return. Additional MDM Review of External, Non-ED records: External records reviewed. Discussion with independent historian: history obtained from the patient Chronic conditions affecting care: None Social determinants of health affecting care: None Consideration of admission (observation or admission): I considered escalation of care to admission for this patient, however given the reassuring workup, the patient is safe for outpatient management. Discussion with the Radiology: No Tests considered but not performed: None Prescription medication considered but not given: Images Reviewed?: Images reviewed and evaluated by me Time of 1ST Reevaluation: 10:45 Reevaluation 1ST: Improved Patient Education/Counseling: Diagnosis, Treatment, Need For Follow Up Family Education/Counseling: Diagnosis, Treatment, Need For Follow Up SEPSIS Sepsis Screen Date sepsis recognized/suspect: Sep 24, 2024 Time Sepsis recognized/suspect: 827 Recent Procedure: No On Antibiotic Therapy: No Respiratory Rate >20: No Heart Rate >90: No Temp<36 C (96.8 F) or >38.3 C: No SBP <90 or MAP <65 mmHG: No New Acute Mental Status Change: No Is the patient on CPAP, BIPAP,: No Physician Orders L Hip Complete Xray (09/24/24 09:32) R Hip Complete Xray (09/24/24 09:32) Vital Signs Date Time Temp Pulse Resp B/P (MAP) Pulse Ox O2 Delivery O2 Flow Rate FiO2 09/24/24 09:45 83 18 98 Room Air 09/24/24 09:45 98.1 83 19 143/87 (105) 98 98.1 09/24/24 08:26 98.1 83 19 143/87 (105) 98 98.1 Departure 1 Departure Time of Disposition: 10:52 Impression: Primary Impression: Hip arthritis Qualified Codes: M16.0 - Bilateral primary osteoarthritis of hip Disposition: 01 HOME / SELF CARE / HOMELESS Condition: Stable Additional Instructions: Follow up with PCP in 1-2 days for MRI study. Return to ED for any new or worsening symptoms. e-Prescriptions Diclofenac Sodium (Topical) (Voltaren Arthritis Pain) 1 % Gel 1 APPLIC EX QIDP for 10 Days, #60 GRAMS 0 Refills Prov: MARKO DURANT NP 09/24/24 Meloxicam (Meloxicam) 7.5 Mg Tab 1 TAB PO BIDP PRN for 10 Days, #20 TAB 0 Refills Prov: MARKO DURANT NP 09/24/24 Discharged With: Self Critical Care Note Critical Care Time?: No Stability Stability form required: No Heart Score Heart Score: Heart Score Response (Comments) Value History N/A 0 EKG N/A 0 Age N/A 0 Risk Factors N/A 0 Troponin N/A 0 Total 0 I personally scribed for MARKO DURANT LIBRARY CIRCULATION ASSISTANT ([email or web address]) on 09/24/24 at 10:45. Electronically submitted by Evelio Power ([employer]). I personally scribed for MARKO DURANT NP ([email or web address]) on 09/24/24 at 10:46. Electronically submitted by Evelio Power ([email or web address]). MARKO DURANT NP Sep 24, 2024 10:45
[2024-09-24] MEDS ORDERED: MELO7.5T7 PO (10:52)
[2024-09-24] MEDS ORDERED: DICL1GEL59 EX (10:52)
== END 2024-09-24 11:11 | disposition home or self-care (01) ==
LOC: ER 08:17
DX: M16.0 Bilateral primary osteoarthritis of hip (principal); E11.9 Type 2 diabetes mellitus without complications; I10 Essential (primary) hypertension; Z98.890 Other specified postprocedural states; Z90.49 Acquired absence of other specified parts of digestive tract; Z79.899 Other long term (current) drug therapy; Z79.82 Long term (current) use of aspirin
CPT/HCPCS: 73502